=== PATIENT | male | born 1940 | race Caucasian/White ===

== ENCOUNTER → 2017-07-15 11:45 | Outpatient (CLI) | payer MEDICARE, SELFPAY ==
[2017-07-15 12:53] LABS: Hemoglobin A1c 5.8 % (4.2-6.3)
[2017-07-15 13:08] LABS: Cholesterol 203 mg/dL (200); High Density Lipoprotein 43 mg/dL; Triglycerides 134 mg/dL; Very Low Density Lipoprotein 27 mg/dL (5-40)
== END ==
PROVIDERS: Family Provider Family Medicine; PCP Family Medicine; Visit Provider Family Medicine
DX: E11.9 Type 2 diabetes mellitus without complications (principal)
CPT/HCPCS: 36415; 80061; 83036

== ENCOUNTER 2018-02-10 16:14 | Emergency (ER) | payer MEDICARE, SELFPAY ==
[2018-02-10 16:16] VITALS: BP 172/89; PULSE 97; RESP 16; TEMP 37.1; O2SAT 97; BMI 24.3
--- NOTE | 2018-02-10 16:29 | CT_ITS ---
STUDY: CT FACIAL BONES WITHOUT CONTRAST REASON FOR EXAM: Male, 77 years old. Facial pain. Injury. RADIATION DOSAGE (If Supplied By Facility): CTDIvol = ( 29.38 ) mGy, DLP = ( 613.57 ) mGycm TECHNIQUE: The patient was scanned in a multi detector CT scanner. Sagittal and coronal images were reconstructed. Individualized dose optimization techniques were used for this CT. COMPARISON: None. FINDINGS: Normal soft tissue structures. Nearly complete opacification of the left maxillary sinus is seen including mucosal thickening and air-fluid level. Findings are consistent with findings are consistent with Normal orbital rojas and orbital contents. Normal nasal bones and anterior nasal spine. Normal facial bones. There is no demonstrated fracture. CT/Sinus/Facial Bone IMPRESSION: No facial fractures. 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 Electronically Signed: Ant Mcbride MD at 18:17 EST , Service support ,
--- NOTE | 2018-02-10 16:29 | CT_ITS ---
STUDY: CT BRAIN WITHOUT CONTRAST REASON FOR EXAM: Male, 77 years old. Trauma. RADIATION DOSAGE (If Supplied By Facility): CTDIvol = ( 44.99 ) mGy, DLP = ( 798.92 ) mGycm TECHNIQUE: Transaxial CT imaging of the brain was performed without administration of intravenous contrast material. Individualized dose optimization techniques were used for this CT. COMPARISON: 03/22/2014. FINDINGS: There is no definite acute abnormality. There is diffuse moderate symmetric atrophy. There is atrophy of the posterior fossa structures. 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 There is no definite acute infarct. There is no bleed. There is no gross mass, mass effect, or midline shift. There is no acute abnormality of the skull. No fractures. Grossly normal orbits. Grossly normal sinuses. CT/Brain/Head without Contrast IMPRESSION: Chronic age related changes and atrophy. No acute abnormality. Electronically Signed: Ant Mcbride MD at 17:57 EST , Service support ,
--- NOTE | 2018-02-10 16:30 | ED.VISSUMM ---
- ER Visit Summary Date of Service: 02/10/18 Chief Complaint: Fall History of Present Illness: The patient is a 77 M presenting after a fall. Patient states he tripped and fell on [place]. He hit his face on the ground. He has a laceration under his nose. Last tetanus is unknown. He denies loss of consciousness. Denies other injuries. He is not on anticoagulants. Physical Examination: Vitals are stable. Patient is afebrile. Alert no acute distress. HEENT exam 2 cm laceration under nose, 2, 1 cm lacerations inner upper lip. Midface is stable. Teeth are stable. Neck is nontender Lungs are clear and equal bilaterally. Heart is regular rate and rhythm. Abdomen is soft nontender nondistended. Extremities are unremarkable. Skin is warm and dry. No focal neurologic deficit. Remainder of exam is unremarkable. Emergency Department Course and Treatment: Patient was given tetanus IM. Wound was irrigated. Anesthetized with lidocaine. 3, 5-0 simple sutures were placed under the nose. 4, 5-0 Vicryl sutures were placed inner upper lip. Patient tolerated this well. CT head shows no acute process. CT facial bones shows no fracture. Patient is advised wound care instructions. Advised to follow-up with his primary care physician. Advised return to ED for worsening complaints. Disposition: Discharge home Impression: Facial laceration, mechanical fall, laceration repair This note was generated with [employer] dictation software. It may contain incorrect words, spelling, and punctuation that were not noted in review of the chart prior to signing ED Disposition - Plan for ED Patient: Chief Complaint: Laceration Referrals: Usman Smalls DO [Primary Care Provider] -
[2018-02-10] MEDS: Diphth,Pertuss(Acell),Tet Vac 0.5 ML Vial IM (16:48)
--- NOTE | 2018-02-10 16:52 | ED.RN ---
PT REFUSED CT SCAN, DR. GOLDSTEIN INFORMED OF SAME.
--- NOTE | 2018-02-10 17:11 | ED.RN ---
DR. GOLDSTEIN DISCUSSED CT SCAN WITH PT AND PT NOW AGREEABLE TO HAVE CT SCAN.
[2018-02-10 17:12] VITALS: BP 187/89; PULSE 71; RESP 16; O2SAT 95
--- NOTE | 2018-02-10 18:25 | ED.DEP ---
ED Disposition - Plan for ED Patient: Chief Complaint: Laceration Instructions: ED Laceration Mouth, ED Laceration Facial Sutr Tape Referrals: Usman Smalls DO [Primary Care Provider] -
== END 2018-02-10 18:38 | disposition home or self-care (01) ==
LOC: ED 16:46
PROVIDERS: Emergency Provider Emergency Medicine; Family Provider Family Medicine; PCP Family Medicine
DX: S01.81XA Laceration without foreign body of other part of head, initial encounter (principal); W01.0XXA Fall on same level from slipping, tripping and stumbling without subsequent striking against object, initial encounter; E11.9 Type 2 diabetes mellitus without complications; I10 Essential (primary) hypertension; E78.00 Pure hypercholesterolemia, unspecified
CPT/HCPCS: 12011; 70450; 70486; 90471; 90715; 99285

== ENCOUNTER → 2018-02-17 09:05 | Outpatient (CLI) | payer MEDICARE, SELFPAY ==
[2018-02-17 09:05] VITALS: BMI 25.2
[2018-02-17 10:31] LABS: Absolute Lymphocyte Count 1.58 X10^3/ul (0.83-4.51); Absolute Neutrophil Count 3.6 X10^3/uL (2.0-7.7); Basophil# 0.04 X10^3/uL; Basophil% 0.6 % (0-1); Eosinophil# 0.36 X10^3/uL; Eosinophils% 5.5 % (0-5); Hematocrit 44.8 % (40-54); Hemoglobin 14.6 g/dl (13.0-16.5); Lymphocyte # 1.58 X10^3/ul (4.0); Lymphocyte % 24.3 % (19-41); Mean Corp Hgb Conc 32.6 g/gl (32-36); Mean Corpuscular Volume 101.1 fL (80-94); Mean Platelet Vol. 10.4 fl (6.2-12.0); Monocyte% 13.8 % (0-10); Neutrophil # 3.61 X10^3/uL (2.7-7.7); Neutrophil % 55.6 % (47-70); Platelet Count 223 K/mm3 (150-450); RBC Distribution Width CV 12.3 % (11.6-14.6); RBC Distribution Width SD 45.3 fl (35.1-43.9); Red Blood Count 4.43 M/mm3 (4.6-6.2); White Blood Count 6.5 K/mm3 (4.4-11.0)
[2018-02-17 10:42] LABS: POSITIVE COUNT NO; POSITIVE DIFFERENTIAL NO; POSITIVE MORPHOLOGY NO
[2018-02-17 11:03] LABS: ALB/GLOB Ratio 0.8 RATIO (0.9-2.4); AST(SGOT) 29 U/L (15-37); Alanine Aminotransfer ALT/SGPT 33 U/L (16-61); Albumin, Serum 3.5 g/dL (3.2-5.0); Alkaline Phosphatase 78 U/L (45-117); Anion Gap 5 (5-15); BUN 23 mg/dL (7-18); BUN/Creat Ratio 15.2 RATIO (10-20); Calcium,Total 8.4 mg/dL (8.5-10.1); Chloride 108 mmol/L (98-107); Cholesterol 170 mg/dL (200); Creatinine, Serum 1.51 mg/dL (0.70-1.30); EST Glomerular Filtration Rate 48 mL/min (>60); Est Glom Filt Rate - Afr Amer 58 mL/min (>60); Globulin 4.5 g/dL (2.2-4.2); Glucose 99 mg/dL (74-106); High Density Lipoprotein 36 mg/dL; Potassium 4.6 mmol/L (3.5-5.1); Sodium Level 143 mmol/L (136-145); Triglycerides 128 mg/dL; Very Low Density Lipoprotein 26 mg/dL (5-40)
--- OUTSIDE RECORDS SUMMARY | 2018-04-14 14:56 | XMS RPT_ITS ---
:1940 Author Organization [facility] Care Team Providers Name Role Phone Usman Smalls Attending Unavailable Sammy, Sherley Referring Unavailable Sammy, Sherley Primary Care Unavailable Stu Smallslas Attending Unavailable Brown, Usman Referring Unavailable Brown, Usman Primary Care Unavailable Brown, Usman Primary Care Unavailable Shira Ruiz Attending Unavailable Magan Awan STITCH CLEANER-C Attending Unavailable Brown, Usman Referring Unavailable Brown, Usman Attending Unavailable Brown, Usman Referring Unavailable Brown, Usman Primary Care Unavailable PROBLEMS PROBLEMS DATE TYPE CONDITION / CODE ATTENDING STATUS SOURCE 02/16/2018 Unknown I10 - Essential Magan Awan Active Elena (primary) [employer]-C Community hypertension / Hospital I10(ICD-10) Repository 02/16/2018 Unknown E78.5 - Magan Awan Active Elena Hyperlipidemia, STITCH CLE[employer]ER-C Community unspecified / Hospital E78.5(ICD-10) Repository 07/15/2017 Unknown E11.9 - Type 2 Usman Smalls Active Elena diabetes mellitus Community without Hospital complications / Repository E11.9(ICD-10) PROCEDURES PROCEDURES No Procedure Records FoundRESULTS RESULTS INTERNAL MEDICINE Observed: 02/18/2018 Status: F Source: [place] OFFICE VISIT 8:56 AM [facility] [address] [place] [address] [place] [address] OFFICE VISIT Date of Service: 02/16/18 MR#: [id number] Acct: [id number] Name: APOLINAR SPAULDING Rep #: [id number] : 1940 Provider: Magan Awan NP Age/Sex: 77/M Location: [facility] Status: Signed Intake Vital Signs02/16/18 Blood Pressure 186/94 H H 02/16/18 Temperature 99.3 F 02/16/18 Height 5 ft 11 in Intake Visit Reasons: SUTURE REMOVAL Chief Complaint: suture removal Is patient in pain?: No Allergies carbenicillin indanyl sodium [From Geocillin] Adverse Reaction (Verified 02/16/18 08:29) Other Medications Aspirin 325 mg PO DAILY@0800 03/23/14 [History Confirmed 02/16/18] losartan 50 mg tablet 50 mg PO DAILY #30 tab 02/16/18 [Rx Confirmed 02/16/18] metoprolol tartrate 100 mg tablet 100 mg PO BID 02/16/18 [History Confirmed 02/16/18] Nurse's Note: Pt presents today for suture removal. Pt c/o dizziness. PFSH Medical History Diabetes (Chronic) Arthritis (Chronic) High cholesterol (Chronic) High blood pressure (Chronic) Cataract (Chronic) Cataract (Resolved) Surgical History History of cataract surgery (Chronic) History of carotid artery dissection (Acute) History of hernia repair (Acute) Family History Father Hypertension Arthritis Social History Smoking Status: Never smoker how long ago did patient quit smokin years ago alcohol intake: never substance use type: does not use what type of physical activity do you participate in: walking frequency: daily HPI HPI Chief Complaint: suture removal Details: APOLINAR SPAULDING is a 77 M who presents to the office today for hospital follow-up for recent fall with facial laceration. The patient has a past medical history as listed above. Patient was seen at [facility] ER on February 10 for sutures to a facial laceration that occurred due to a fall. A CT of the head was done and was negative. The patient states he thinks he fell because he was dizzy, he is unsure if it was his BP that made him dizzy. Last fall occurred over 3 years ago that was due to dizziness patient was found to have some carotid blockage that he received an left carotid endarterectomy. The patient continues to complain of intermittent dizziness but no falls since the ER visit. Denies any bleeding, purulent drainage or signs of infection regarding the facial laceration repair under his left nostril. He denies any other aggravating or alleviating factors. The patient otherwise denies any fever, chills, nausea, vomiting, shortness of breath, chest pain or pressure, palpitations, orthopnea, lower extremity edema, syncope or presyncopal episodes. ROS Const Constitutional: No anorexia, body ache, chills, fever(s), decreased energy, malaise, night sweats, weight change, sleep problems, other, snoring, weakness, frequent falls, headache(s), abnormal sleep pattern, change in appetite, excessive sweating or fatigue Eyes Eyes: No blurry vision, change in vision, double vision, discharge, dry eyes, bulging eyes, floaters, eye pain, light sensitivity, spots in vision, tunnel vision, other or visual disturbances ENT ENT: No ear pain, ear discharge, ear pressure, hearing loss, tinnitus, dizziness/vertigo, balance problems, nosebleed/epistaxis, nasal congestion, nasal obstruction, nose pain, sinus pressure, sinus pain, nasal discharge, post nasal drip, facial pain, dental pain, dry mouth, bad breath, hoarseness, mouth lesions, mouth pain, sore throat, difficulty swallowing, neck pain, abnormal hearing, headache(s), other, lip swelling, throat swelling or tongue swelling Resp Respiratory: No cough, change in phlegm color, chest congestion, excessive phlegm production, hemoptysis, pain on inspiration, shortness of breath, pain with cough, snoring, stridor, other or wheezing Cardio Cardiology: No chest pain at rest, chest pain with exertion, leg pain with exertion, shortness of breath, dyspnea on exertion, generalized swelling, irregular heart rhythm, lightheadedness, orthopnea, radiating jaw, neck or arm pain, fast heart rate, slow heart rate, palpitations, other or excessive sweating Gastro GI: No abdominal pain, belching, bloating, change in bowel habits, change in stool character, coffee ground emesis, constipation, cramping, diarrhea, heartburn, difficulty swallowing, feeling full early, excessive flatus, incontinent of stools, Vomiting blood/hematemesis, blood in stool, loose stools, Black,tarry stools, nausea/dyspepsia, pain with swallowing, vomiting or other Genitourinary Male: No difficulty urinating, burning urination, painful urination, urinary incontinence, urinary frequency, urinary urgency, urinary hesitancy, urinary retention, blood in urine, Frequent nighttime urination/ nocturia, post void dribbling, suprapubic fullness, side pain, sexual problems, genital lesions, genital itching, erectile dysfunction, penile discharge, difficulty with ejaculations, blood in semen, scrotal swelling, testicle lump, testicle pain or other Musc Musculoskeletal: No joint pain, back pain, deformity, joint swelling, limited range of motion, loss of height, muscle cramps, muscle weakness, decreased muscle mass, body aches, neck pain, radiating pain into limb, stiffness, other, abnormal walking, numbness or tingling Skin Skin: No acne, hair loss, change in hair, nail changes, boil, change in skin color, dry skin, redness, excessive hair growth, yellowing of the skin, lesions, rash, skin pain, skin ulcer, sores, skin swelling, wounds, other or itching Breast Breast: No change in breast shape, breast lump, breast pain, breast skin changes, breast swelling, nipple discharge or other Neuro Neurology: No abnormal walking, abnormal hearing, abnormal movements, abnormal speech, unsteady gait/balance, weakness, frequent falls, headache(s), lack of coordination, loss of vision, numbness, tingling, visual disturbances, restless legs, fainting, tremor(s), other, behavioral changes, confusion or memory loss Psych Psychiatric: No abnormal sleep pattern, No lack of enjoyment, No anxiety, No behavioral changes, No change in appetite, No confusion, No depression, No difficulty concentrating, No hopelessness, No irritability, No memory loss, No mood swings, No panic attacks, No paranoia, No Thoughts of harming yourself/Others, No hallucinations, No other Endo Endocrine: No change in body appearance, cold intolerance, excessive sweating, fatigue, flushing, heat intolerance, increased thirst/drinking, increased hunger, increased urination or other Aller/Imm Allergy/Immunologic: No food intolerance, itchy eyes, lip swelling, seasonal allergy symptoms, throat swelling, tongue swelling, hives, wheezing or other Pablo/Lymp Hematologic/Lymphatic: No easy bleeding, easy bruising, enlarged lymph nodes or other Exam Const General: cooperative, comfortable, no acute distress Nutritional Appearance: average body habitus, well nourished Orientation: alert, oriented x3 Limitations: mental status not altered HENMT Head: normal to inspection Ears: hearing grossly normal bilaterally, unable to visualize TM (cerumen impaction) bilaterally Mouth: oral mucosae normal Throat: posterior oropharynx normal Eyes General: appearance normal, both eyes and all related structures Visual Schuler: normal visual schuler by confrontation Pupils: PERRL Neck Neck: normal visual inspection Resp Effort AND Inspection: normal respiratory effort, able to speak in complete sentences, normal respiratory pattern, symmetric chest movement, no audible wheezes, no cough Auscultation: Bilateral: Clear to Auscultation Cardio Palpation: normal PMI Rate: regular rate Heart Sounds: S1 normal, S2 normal, normal S1 and S2, no click, no gallops, no murmurs, no rubs Musc Musculoskeletal: No muscle weakness Skin General: no rashes or lesions noted, elasticity normal, turgor normal Lesions: no lesions Rashes: no rashes Trauma: laceration Other: Left nasal region above the left lip 3 sutures were removed, patient tolerated the procedure well. Site is well approximated without any signs of infection. Dissolvable sutures were visible in left internal upper lip without any signs of infection. Neuro General: alert, awake, oriented x3, CN's II-XI intact bilaterally Speech: speech normal Gait: normal gait Motor: muscle tone normal throughout Extrem General: normal to inspection, normal gait, no edema, no pedal edema Psych Appearance: grossly normal Mental Status: mental status grossly normal Affect: normal affect Attitude: cooperative Thought Process: normal Office Procedures Cerumen Removal BMS Cerumen Removal Procedure Procedure performed by: Verónica Alcantara Method of removal: cerumen loop/spoon From which ear canal was the cerumen removed: bilateral Amount of Cerumen: moderate Patient tolerated procedure: well Complications: other Additional Details: unable to remove all cerumen, tms unable to be visualized, discussed use of debrox Assessment AND Plan 1. HTN (hypertension) I10 Plan Blood pressure elevated at ER visit and today in office. Will start patient on losartan, check BMP blood work in 2 weeks. Patient encouraged to continue to monitor blood pressure at home. Patient educated on medication side effects and signs and symptoms that would warrant emergency medical care. Orders Orders: 2. Bilateral impacted cerumen H61.23 Plan Unsuccessful attempt to irrigate in office. Patient encouraged to lemon picker Debrox [id number]. Will attempt to irrigate again in future. Orders Orders: 3. Dizziness R42 Plan Patient complains of intermittent dizziness. Possible cause cerumen impaction or hypertension. Attempted cerumen removal, patient to treat with [id number] Debrox. Patient started on losartan for hypertension. If continual dizziness consider checking carotids. Patient educated on signs and symptoms that would warrant emergency medical care. 4. Facial laceration S01.81XA Plan 3 sutures removed from above patient's upper lip. Patient encouraged to use bacitracin for 1 week and to also avoid shaving for this amount of time. Patient educated on signs and symptoms of infection and to call office if present. Does still have dissolveable sutures in place to inner lip. Plan Detail Other Orders Orders: Other Medications New: Follow Up 4 Weeks Coding Level of Care Code Off vis,est,level 3 Diagnoses HTN (hypertension) I10 Bilateral impacted cerumen H61.23 Dizziness R42 Facial laceration S01.81XA 02/18/18 0856 <Electronically signed by Magan MEZA> Date Magan MEZA Cosigner Signature: Date (if applicable) CC: NAHOMI W/DIFF, AUTOMATED Collected: 02/17/2018 Status: F Source: [place] 9:08 AM [facility] [place] REPOSITORY TYPE CODE TESTS RESULT OUT OF RANGE REFERENCE UNITS LAB L100.1000 4.4-11.0 K/mm3 Normal WBC 6.5 LAB L100.1200 4.6-6.2 M/mm3 Low RBC 4.43 LAB L100.1300 13.0-16.5 g/dl Normal HGB 14.6 LAB L100.1400 40-54 % Normal HCT 44.8 LAB L100.1500 80-94 fL High MCV 101.1 LAB L100.1600 27.0-32.0 pg High MCH 33.0 LAB L100.1700 32-36 g/gl Normal MCHC 32.6 LAB L100.1810 11.6-14.6 % Normal RDW CV 12.3 LAB L100.1820 35.1-43.9 fl High RDW SD 45.3 LAB L100.1900 150-450 K/mm3 Normal PLT 223 LAB L100.2000 6.2-12.0 fl Normal MPV 10.4 LAB L100.2100 47-70 % Normal NEUT% 55.6 LAB L100.2200 19-41 % Normal LY% 24.3 LAB L100.2300 0-10 % High MONO% 13.8 LAB L100.2400 0-5 % High EO% 5.5 LAB L100.2500 0-1 % Normal BASO% 0.6 LAB L100.2550 0.0-0.9 % Normal IM GRAN % 0.200 Result Comment: IG% - Immature Granulocytes (promyelocytes, myelocytes and metamyelocytes) > 1% indicates that a LEFT SHIFT is Present. LAB L100.2620 2.0-7.7 X10 3/uL Normal Absolute Neut 3.6 LAB L100.2720 0.83-4.51 X10 3/ul Normal Absolute Lymph 1.58 Performed By: #### L100.0100 #### [facility] [address] [place], [address] COMPREHENSIVE METABOLIC Collected: 02/17/2018 Status: F Source: [facility] 9:08 AM [facility] REPOSITORY TYPE CODE TESTS RESULT OUT OF RANGE REFERENCE UNITS LAB L501.0100 74-106 mg/dL Normal GLU 99 Result Comment: Please note revised GLUCOSE reference range effective 2017. LAB L501.1000 7-18 mg/dL High BUN 23 LAB L501.1100 0.70-1.30 mg/dL High CREAT,SERUM 1.51 Result Comment: The validity of the calculated GFR AND GFRAA in patients over 70 years has not been determined. Clinical correlation is essential. LAB L501.1110 >60 mL/min Low EST GFR 48 Result Comment: Non- GFR Calc LAB L501.1115 >60 mL/min Low EST GFR - AA 58 Result Comment: GFR Calc LAB L501.1300 10-20 RATIO Normal BUN/CRE 15.2 LAB L501.1500 6.4-8.2 g/dL T Normal PROT 8.0 LAB L501.1800 3.2-5.0 g/dL Normal ALB 3.5 LAB L501.1950 2.2-4.2 g/dL High GLOB 4.5 LAB L501.2000 0.9-2.4 RATIO Low A/G 0.8 LAB L501.2200 8.5-10.1 mg/dL Low CA 8.4 LAB L501.4100 15-37 U/L Normal AST 29 LAB L501.4305 45-117 U/L Normal ALK P 78 LAB L501.4405 16-61 U/L Normal ALT 33 LAB L501.4600 0.20-1.00 mg/dL T Normal BILI 0.80 LAB L501.5300 136-145 mmol/L NA Normal 143 LAB L501.5600 3.5-5.1 mmol/L K Normal 4.6 LAB L501.5900 98-107 mmol/L High CL 108 LAB L501.6100 21.0-32.0 mmol/L Normal CO2 30.0 LAB L501.6200 5-15 Normal GAP 5 Performed By: #### L500.4050, L500.4100 #### [facility] [address] [place], [address] LIPID PROFILE Collected: 02/17/2018 Status: F Source: [place] 9:08 AM [facility] REPOSITORY TYPE CODE TESTS RESULT OUT OF RANGE REFERENCE UNITS LAB L501.4900 200 mg/dL Normal CHOL 170 Result Comment: <200 mg/dL Desirable 200-240 mg/dL Borderline >240 mg/dL High Risk LAB L501.5000 mg/dL Normal TRIG 128 Result Comment: The drugs N-Acetylcysteine and Metamizole may falsely depress this assay. Serum Triglycerides Reference Interval Normal <150 mg/dL Borderline high 150 - 199 mg/dL High 200 - 499 mg/dL Very High > or = 500 mg/dL LAB L501.6400 mg/dL Low HDL 36 Result Comment: The drugs N-Acetylcysteine and Metamizole may falsely depress this assay. Reference Range HDL <40 mg/dL Low HDL Cholesterol HDL >or= 60 mg/dL High HDL Cholesterol LAB L501.6500 0-130 mg/dL Normal LDL 108 LAB L501.6600 5-40 mg/dL Normal VLDL 26 Performed By: #### L500.4050, L500.4100 #### [facility] [address] [facility] [place], [address] EMERGENCY DEPARTMENT Observed: 02/10/2018 Status: F Source: [place] SUMMARY 6:25 PM [facility] [place] REPOSITORY [facility] Medical Records Department [address] [facility] [place] [place] [address] Emergency Department Summary 02/10/18 1630 MR#: [id number] Acct: [id number] Name: APOLINAR SPAULDING Rep #: [id number] : 1940 77 From: Shira Ruiz MD PCP: Usman Smalls DO Status: REG ER - ER Visit Summary Date of Service: 02/10/18 Chief Complaint: Fall History of Present Illness: The patient is a 77 M presenting after a fall. Patient states he tripped and fell on [place]. He hit his face on the ground. He has a laceration under his nose. Last tetanus is unknown. He denies loss of consciousness. Denies other injuries. He is not on anticoagulants. Physical Examination: Vitals are stable. Patient is afebrile. Alert no acute distress. HEENT exam 2 cm laceration under nose, 2, 1 cm lacerations inner upper lip. Midface is stable. Teeth are stable. Neck is nontender Lungs are clear and equal bilaterally. Heart is regular rate and rhythm. Abdomen is soft nontender nondistended. Extremities are unremarkable. Skin is warm and dry. No focal neurologic deficit. Remainder of exam is unremarkable. Emergency Department Course and Treatment: Patient was given tetanus IM. Wound was irrigated. Anesthetized with lidocaine. 3, 5-0 simple sutures were placed under the nose. 4, 5-0 Vicryl sutures were placed inner upper lip. Patient tolerated this well. CT head shows no acute process. CT facial bones shows no fracture. Patient is advised wound care instructions. Advised to follow-up with his primary care physician. Advised return to ED for worsening complaints. Disposition: Discharge home Impression: Facial laceration, mechanical fall, laceration repair This note was generated with [employer] dictation software. It may contain incorrect words, spelling, and punctuation that were not noted in review of the chart prior to signing ED Disposition - Plan for ED Patient: Chief Complaint: Laceration Referrals: Usman Smalls, [Primary Care Provider] - What to do if you have Problems For any increased pain, shortness of breath, bleeding, nausea or vomiting, chest pain, or any unexpected problems, contact your Primary Care Provider. Call [facility] ([phone]) or report to the closest Emergency Room. Call 911 if necessary. 02/10/181824 <Electronically signed by Shira Ruiz MD> Date Shira Ruiz MD Cosigner Signature (If Indicated): Date CC: Usman Smalls DO DISCHARGE INSTRUCTION Observed: 02/10/2018 Status: F Source: [place] 6:[address] [facility] Medical Records Department [address] [place] [address] Discharge Instruction 02/10/181824 MR#: [id number] Acct: [id number] Name: APOLINAR SPAULDING Rep #: [id number] : 1940 77 From: Shira Ruiz MD PCP: Usman Smalls DO Status: REG ER ED Disposition - Plan for ED Patient: Chief Complaint: Laceration Instructions: ED Laceration Mouth, ED Laceration Facial Sutr Tape Referrals: Usman Smalls DO [Primary Care Provider] - What to do if you have Problems For any increased pain, shortness of breath, bleeding, nausea or vomiting, chest pain, or any unexpected problems, contact your Primary Care Provider. Call [facility] ([phone]) or report to the closest Emergency Room. Call 911 if necessary. 02/10/18 9377 <Electronically signed by Shira Ruiz MD> Date Shira Ruiz MD Cosigner Signature (If Indicated): Date CC: Usman Smalls DO BRAIN/HEAD WITHOUT Observed: 02/10/2018 Status: F Source: [place] CONTRAST 4:30 PM [facility] REPOSITORY [facility] Imaging Services [address] [place], [place] [address] [address] Brain/Head without Contrast MR#: [id number] Acct: [id number] Name: APOLINAR SPAULDING Rep #: [id number] : 1940 M 77 From: Ant Mcbride MD PCP: Usman Smalls DO Status: REG ER Study: Brain/Head without Contrast Date of Exam: 02/10/18 Exam# [id number] Ordering Dr: Shira Ruiz MD STUDY: CT BRAIN WITHOUT CONTRAST REASON FOR EXAM: Male, 77 years old. Trauma. RADIATION DOSAGE (If Supplied By Facility): CTDIvol = ( 44.99 ) mGy, DLP = ( 798.92 ) mGycm TECHNIQUE: Transaxial CT imaging of the brain was performed without administration of intravenous contrast material. Individualized dose optimization techniques were used for this CT. COMPARISON: 03/22/2014. FINDINGS: There is no definite acute abnormality. There is diffuse moderate symmetric atrophy. There is atrophy of the posterior fossa structures. 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 There is no definite acute infarct. There is no bleed. There is no gross mass, mass effect, or midline shift. There is no acute abnormality of the skull. No fractures. Grossly normal orbits. Grossly normal sinuses. CT/Brain/Head without Contrast IMPRESSION: Chronic age related changes and atrophy. No acute abnormality. Electronically Signed: Ant Mcbride MD at 17:57 EST , Service support , CC: Shira Ruiz MD; Usman Smalls DO Service Crew Supervisor: Signed SINUS/FACIAL BONE Observed: 02/10/2018 Status: F Source: [place] 4:30 PM [facility] REPOSITORY [facility] Imaging Services [address] [place] [address] Sinus/Facial Bone MR#: [id number] Acct: [id number] Name: APOLINAR SPAULDING Rep #: [id number] : 1940 77 From: Ant Mcbride MD PCP: Usman Smalls DO Status: REG ER Study: Sinus/Facial Bone Date of Exam: 02/10/18 Exam# [id number] Ordering Dr: Shira Ruiz MD STUDY: CT FACIAL BONES WITHOUT CONTRAST REASON FOR EXAM: Male, 77 years old. Facial pain. Injury. RADIATION DOSAGE (If Supplied By Facility): CTDIvol = ( 29.38 ) mGy, DLP = ( 613.57 ) mGycm TECHNIQUE: The patient was scanned in a multi detector CT scanner. Sagittal and coronal images were reconstructed. Individualized dose optimization techniques were used for this CT. COMPARISON: None. FINDINGS: Normal soft tissue structures. Nearly complete opacification of the left maxillary sinus is seen including mucosal thickening and air-fluid level. Findings are consistent with findings are consistent with Normal orbital rojas and orbital contents. Normal nasal bones and anterior nasal spine. Normal facial bones. There is no demonstrated fracture. CT/Sinus/Facial Bone IMPRESSION: No facial fractures. 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 Electronically Signed: Ant Mcbride MD at 18:17 EST , Service support , CC: Shira Ruiz MD; Usman Smalls DO Service Crew Supervisor: Signed PROGRESS Observed: 09/28/2017 Status: COMPLETED Source: [place] 1:15 PM [facility] REPOSITORY HNO ID: [id number] Author: Sara De Oliveira Service: (none) Author Type: Property Adjuster Type: Progress Notes Filed: 09/28/2017 1:17 PM Note Text: Patient hasn't seen for 3 years, will remove him as PCP. This was discuss at the teamlet meeting. Sara De Oliveira MA CNPTOUTREACH Observed: 09/28/2017 Status: COMPLETED Source: [place] 12:00 AM [facility] REPOSITORY Patient Outreach (FAMPWS) APOLINAR SPAULDING ([id number]) 1940 M Date Time Provider Department 09/28/17 SARA DE OLIVEIRA MA During your visit today, we recorded the following information about you: Sara De Oliveira MA 09/28/2017 1:17 PM Signed Patient hasn't seen for 3 years, will remove him as PCP. This was discuss at the teamlet meeting. Sara De Oliveira MA Allergies As of Date: 09/28/2017 Noted Allergy Reaction GEOCILLIN (CARBENICILLIN INDANYL *04/03/2014 16 - Unknown Date Reviewed: 08/15/2014 Reviewed by: Bony Guerra - Fully Assessed Reason for Visit: PHMA/Care Gap Outreach [[id number]] Prescriptions as of 09/28/2017 Sig: LANCETS 28 GAUGE Test blood sugar(s) one time * BLOOD SUGAR DIAGNOSTIC STRIPS Test blood sugar(s) one time * PIOGLITAZONE 30 MG TABLET Take 1 tablet by mouth once d* HYDROCHLOROTHIAZIDE 25 MG TAB* Take 1 tablet by mouth once d* ATORVASTATIN 40 MG TABLET Take 1 tablet by mouth once d* SODIUM CHLORIDE 0.9 % INTRAVE* 1000 ml 0.9%NS bolus METOPROLOL TARTRATE 50 MG TAB* twice daily. ASPIRIN 325 MG TABLET Take 325 mg by mouth as neede* Problem List As Of Date 09/28/2017 Noted Resolved History of stroke [Z86.73] INVALID FOR* Priority: A Weakness [R53.1] INVALID FOR* Occlusion and stenosis of carotid artery withou*INVALID FOR* Priority: A More... HTN (hypertension) [I10] INVALID FOR* Priority: A Hyperlipidemia [E78.5] INVALID FOR* Priority: A Elevated LFTs [R94.5] INVALID FOR* Elevated serum protein level [R77.9] INVALID FOR* Abnormal serum protein electrophoresis [R77.8] INVALID FOR* CKD (chronic kidney disease) stage 3, GFR 30-59*INVALID FOR* Priority: A More... Type 2 diabetes mellitus without complication (*INVALID FOR* Priority: A Encounter Status:Closed by SARA DE OLIVEIRA on 09/28/17 [facility] Observed: 08/11/2017 Status: COMPLETED Source: [place] 12:00 AM [facility] REPOSITORY Letter Text Department of Family Medicine [address] [place], [place] [address] 08/11/2017 Apolinar Spaulding CCF# [id number] Dear Mr. Spaulding: Thank you for choosing [facility] for your care. We are trying to improve Care for people who have hypertension or who are at risk of hypertension. According To the [facility] records it looks as if you will need an appointment. Please use My Chart to request an appointment or call [phone]. If you are receiving care outside of [facility] please call us and let us know so we Can update our records. Sincerely, [facility] INTERNAL MEDICINE Observed: 07/15/2017 Status: F Source: [place] OFFICE VISIT 12:31 PM [facility] REPOSITORY [facility] [place] [address] [place] [address] OFFICE VISIT Date of Service: 07/15/17 MR#: [id number] Acct: [id number] Name: APOLINAR SPAULDING Rep #: [id number] : 1940 Provider: Usman Smalls DO Age/Sex: 77/M Location: [facility] Status: Signed Intake Vital Signs07/15/17 Height 5 ft 10 in 07/15/17 Weight: 177 lb 07/15/17 Body Mass Index (BMI) 25.4 07/15/17 Blood Pressure 213/98 07/15/17 Blood Pressure Location Rt brachial Intake Visit Reasons: AMD/DIABETIC CHECK Chief Complaint: Diabetic check Allergies carbenicillin indanyl sodium [From Geocillin] Adverse Reaction (Verified 07/15/17 10:59) Other Medications Aspirin 325 mg PO DAILY@0800 03/23/14 [History Confirmed 07/15/17] PFSH Medical History Diabetes (Chronic) Arthritis (Chronic) High cholesterol (Chronic) High blood pressure (Chronic) Cataract (Chronic) Cataract (Resolved) Surgical History History of cataract surgery (Chronic) History of carotid artery dissection (Acute) History of hernia repair (Acute) Family History Father Hypertension Arthritis Social History Smoking Status: Former smoker how long ago did patient quit smokin years ago alcohol intake: never substance use type: does not use what type of physical activity do you participate in: walking frequency: daily HPI HPI Chief Complaint: Diabetic check Details: APOLINAR SPAULDING, is a 77 M who presents to the office today for evaluation of his diabetes ROS Const Constitutional: No chills, fatigue, fever(s), frequent falls, malaise, weakness, sleep problems or change in appetite Eyes Eyes: No blurry vision, change in vision, double vision, discharge or visual disturbances ENT ENT: No abnormal hearing, ear pain, ear pressure, tinnitus or dizziness/vertigo Resp Respiratory: No cough, shortness of breath or wheezing Cardio Cardiology: No chest pain at rest, chest pain with exertion, shortness of breath, dyspnea on exertion, generalized swelling, irregular heart rhythm, lightheadedness, orthopnea, fast heart rate or palpitations Gastro GI: No abdominal pain, change in bowel habits, constipation, diarrhea, nausea/dyspepsia or vomiting Genitourinary Male: No difficulty urinating, burning urination, painful urination, urinary incontinence, urinary frequency, urinary urgency, urinary hesitancy, urinary retention, blood in urine, Frequent nighttime urination/ nocturia, sexual problems, testicle lump or testicle pain Musc Musculoskeletal: No joint pain, back pain, joint swelling, limited range of motion, muscle weakness, numbness or tingling Skin Skin: No change in skin color, itching, rash or wounds Breast Breast: No breast lump or breast pain Neuro Neurology: No frequent falls, weakness, abnormal hearing, numbness, tingling, unsteady gait/balance, dizziness, loss of vision, memory loss or visual disturbances Psych Psychiatric: No memory loss, No anxiety, No change in appetite, No depression, No Thoughts of harming yourself/Others Endo Endocrine: No fatigue, heat intolerance, increased thirst/drinking, increased hunger or increased urination Aller/Imm Allergy/Immunologic: No wheezing, itchy eyes or seasonal allergy symptoms Pablo/Lymp Hematologic/Lymphatic: No easy bleeding, easy bruising or enlarged lymph nodes Exam Const General: cooperative Nutritional Appearance: average body habitus Orientation: oriented x3 Neck Neck: no lymphadenopathy Neck mass: No Resp Effort AND Inspection: normal respiratory effort Auscultation: Bilateral: Clear to Auscultation Cardio Rate: regular rate Rhythm: regular rhythm GI Inspection: normal to inspection Musc Musculoskeletal: No muscle weakness Neuro General: oriented x3 Extrem General: no pedal edema Assessment AND Plan Problems 1. Hypertension I10 2. High cholesterol E78.00 3. Diabetes E11.9 Orders Orders: Plan Detail Additional Comments This patient was seen in follow-up for his diabetes. After reviewing his history I very much doubt that he has diabetes he said he was diabetic he lost 50 pounds and since that time on no medication his hemoglobin A1c's have been 5.5 on the average and when I looked at his meter the average fasting sugar was 103 make me highly doubt that the initial diagnosis was correct. My biggest concern was his blood pressure which she assures me is normal and he takes it at home. I will get a repeat A1c to make sure that the diagnosis of diabetes could be ruled out and also to recheck his cholesterol because he has history of hyperlipidemia if his blood pressure would continue to be elevated on his home readings he is to be in touch with me so we can initiate therapy. Follow Up 1 Year Coding Level of Care Code Off vis,est,level 3 Diagnoses Hypertension I10 High cholesterol E78.00 Diabetes E11.9 07/15/17 1231 <Electronically signed by Usman Smalls DO> Date Usman Smalls DO Cosigner Signature: Date (if applicable) CC: HEMOGLOBIN A1C Collected: 07/15/2017 Status: F Source: [place] 11:50 AM [facility] REPOSITORY TYPE CODE TESTS RESULT OUT OF RANGE REFERENCE UNITS LAB L501.9985 4.2-6.3 % Normal HGB A1C 5.8 Performed By: #### L501.9985, L500.4100 #### [facility] [address] [place], [place], [id number] LIPID PROFILE Collected: 07/15/2017 Status: F Source: [place] 11:50 AM [facility] REPOSITORY TYPE CODE TESTS RESULT OUT OF RANGE REFERENCE UNITS LAB L501.4900 200 mg/dL High CHOL 203 Result Comment: <200 mg/dL Desirable 200-240 mg/dL Borderline >240 mg/dL High Risk LAB L501.5000 mg/dL Normal TRIG 134 Result Comment: The drugs N-Acetylcysteine and Metamizole may falsely depress this assay. Serum Triglycerides Reference Interval Normal <150 mg/dL Borderline high 150 - 199 mg/dL High 200 - 499 mg/dL Very High > or = 500 mg/dL LAB L501.6400 mg/dL Normal HDL 43 Result Comment: The drugs N-Acetylcysteine and Metamizole may falsely depress this assay. Reference Range HDL <40 mg/dL Low HDL Cholesterol HDL >or= 60 mg/dL High HDL Cholesterol LAB L501.6500 0-130 mg/dL High LDL 133 LAB L501.6600 5-40 mg/dL Normal VLDL 27 Performed By: #### L501.9985, L500.4100 #### [facility] [address] [place], [address] ALLERGIES ALLERGIES DATE TYPE / CODE NAME / CODE REACTION SEVERITY SOURCE 02/16/2018 Drug carbenicillin Other Unknown [place] Allergy/416 indanyl Community 601704(SNOM sodium/[id number]([facility] ED CT) XNORM) Repository ENCOUNTERS ENCOUNTERS ADMIT/DISCHARGE ACCOUNT ADMITTING ENCOUNTER LOCATION SOURCE NUMBER CLASS 02/17/2018 [id number] Ambulatory [place] 7 [facility] ing:LAB Repository 02/16/2018/ [id number] Ambulatory BMSBuilding:B [place] 8 9 [facility] Repository 02/10/2018/ [id number] Emergency [place] 8 8 [facility] ing:ED Repository 07/15/2017 [id number] Ambulatory [place] 1 [facility] ing:LAB Repository 07/15/2017/ [id number] Ambulatory BMSBuilding:B [place] 8 4 [facility] Repository PAYERS PAYERS ENCOUNTER GUARANTOR PAYER SUBSCRIBER SOURCE 02/17/2018 APOLINARREMI [id number] Primary APOLINAR BURNSDOB: [place] Insurance:[employer] [id number] [place] [facility] [address]Yjr: [phone]) Number: Repository [phone] () [id number] Date:[id number] [address] [place] [address]ED: 02/17/2018 Secondary NOT GIVENUNK [place] Insurance:SELF PAY [facility] Number: Effective Repository Date:2018-02-17 02/16/2018 APOLINAR [id number] Primary APOLINAR BURNSDOB: [place] Insurance:[employer] [id number] [place] [facility] [address]Cel: [phone]) Number: Repository [phone] () [id number] Date:[id number] [address] [place] [address]LE: 02/16/2018 Secondary NOT GIVENUNK [place] Insurance:SELF PAY [facility] Number: Effective Repository Date:2018-02-16 02/10/2018 APOLINAR [id number] Primary APOLINAR BURNSDOB: [place] Insurance:[employer] [id number] [place] [facility] [address]Tel: [phone]) Number: Repository [phone] () [id number] Date:1847-50-90IM [address] [address]ZL: 02/10/2018 Secondary NOT GIVENUNK [place] Insurance:SELF PAY [facility] Number: Effective Repository Date:2018-02-10 07/15/2017 APOLINAR [id number] Primary APOLINAR BURNSDOB: [place] Insurance:[employer] [id number] [place] [facility] [address]Tel: [phone]) Number: Repository [phone] () [id number] Date:[id number] [address] [address]CA: 07/15/2017 Secondary NOT GIVENUNK [place] Insurance:SELF PAY [facility] Number: Effective Repository Date:2017-07-15 07/15/2017 APOLINAR [id number] Primary APOLINAR BURNSDOB: [place] Insurance:[employer] [id number] [place] [facility] [address]Tel: [phone]) Number: Repository [phone] () [id number] Date:[id number] [address] [address]FM: 07/15/2017 Secondary NOT GIVENUNK [place] Insurance:SELF PAY [facility] Number: Effective Repository Date:2017-07-15
== END ==
PROVIDERS: Nurse Practitioner Family; Family Provider Family Medicine; PCP Family Medicine; Referring Provider Family Medicine; Visit Provider Family Medicine
DX: I10 Essential (primary) hypertension (principal); E78.5 Hyperlipidemia, unspecified
CPT/HCPCS: 36415; 80053; 80061; 85025

== ENCOUNTER → 2018-03-24 10:22 | Outpatient (CLI) | payer MEDICARE, SELFPAY ==
[2018-02-17 09:05] VITALS: BMI 25.2
[2018-03-24 12:51] LABS: Vitamin B12 355 pg/mL (211-911)
[2018-03-24 13:54] LABS: AST(SGOT) 26 U/L (15-37); Alanine Aminotransfer ALT/SGPT 40 U/L (16-61); Albumin, Serum 3.8 g/dL (3.2-5.0); Alkaline Phosphatase 80 U/L (45-117); Anion Gap 12 (5-15); BUN 20 mg/dL (7-18); BUN/Creat Ratio 14.2 RATIO (10-20); Calcium,Total 8.7 mg/dL (8.5-10.1); Chloride 106 mmol/L (98-107); Creatinine, Serum 1.41 mg/dL (0.70-1.30); EST Glomerular Filtration Rate 52 mL/min (>60); Est Glom Filt Rate - Afr Amer 63 mL/min (>60); Glucose 149 mg/dL (74-106); Potassium 4.1 mmol/L (3.5-5.1); Protein, Total 7.8 g/dL (6.4-8.2); Sodium Level 141 mmol/L (136-145); Thyroid Stim Hormone (TSH) 0.86 uIU/mL (0.358-3.74)
[2018-03-24 15:45] LABS: Bacteria 0 SEEN /hpf (None Seen); Red Blood Cells-Urine 0 SEEN /hpf (0-5); Squamous Epithelial Cells - UA 0 SEEN /hpf (0-5); White Blood Cells 0 SEEN /hpf (0-5)
[2018-03-24 17:47] LABS: Color, Urine Yellow (Yellow); Glucose, Dipstick Normal (Normal); Ketone-Dipstick Negative (Negative); Leukocyte Esterase-Dipstick Negative /ul (Negative); Nitrite-Dipstick Negative (Negative); Occult Blood-Urine 25 /ul (Negative); Protein-Dipstick 500 mg/dl (Negative); Specific Gravity, Urine 1.025 (1.002-1.030); Urine Bilirubin Dipstick Negative (Negative); Urine Clarity Clear (Clear); Urine Urobilinogen Normal (Normal)
[2018-03-24 19:00] LABS: Fine Granular Cast- Urine 0-5 SEEN /lpf (0-5); Hyaline Cast 0 SEEN /lpf (0-5); Mucous, Urine 1+ /hpf (<or=2+)
== END ==
PROVIDERS: Family Provider Family Medicine; PCP Family Medicine; Visit Provider Family Medicine
DX: I10 Essential (primary) hypertension (principal)
CPT/HCPCS: 36415; 80053; 81001; 82607; 82746; 84443

== ENCOUNTER 2018-05-04 14:39 | Emergency (ER) | payer MEDICARE, SELFPAY ==
[2018-02-17 09:05] VITALS: BMI 25.2
[2018-05-04 14:40] VITALS: BP 168/118; PULSE 104; RESP 18; TEMP 36.6; O2SAT 95; BMI 26.5
--- NOTE | 2018-05-04 15:05 | EKG12_ITS ---
Test Reason : HTN Blood Pressure : / mmHG Vent. Rate : 082 BPM Atrial Rate : 082 BPM P-R Int : 172 ms QRS Dur : 090 ms QT Int : 382 ms P-R-T Axes : 023 -15 010 degrees QTc Int : 446 ms Sinus rhythm with marked sinus arrhythmia Possible Left atrial enlargement Left ventricular hypertrophy Abnormal ECG Confirmed by JORGE L ORR, TAMERA ([id number]), editorial cartoonist CORTNEY NUÑEZ ([id number]) on 05/07/2018 8:25:56 AM Referred By: COLUMBA Confirmed By:TAMERA COATS MD
--- NOTE | 2018-05-04 15:06 | CT_ITS ---
STUDY: CTA NECK WITH CONTRAST REASON FOR EXAM: Male, 78 years old. Dizziness RADIATION DOSAGE (If Supplied By Facility): CTDIvol = ( 29.44 ) mGy, DLP = ( 1502.16 ) mGycm TECHNIQUE: CT angiography with multi-detector data acquisition was performed from the aortic arch to the skull base following intravenous administration of 100 ml of Isovue 370 contrast. MIP images were reconstructed from the axial data set. Post-processing of the angiographic images was performed, with multiplanar reformation and 3D reconstruction. Individualized dose optimization techniques were used for this CT. COMPARISON: None. FINDINGS: AORTIC ARCH: Normal visualized aortic arch. Normal origins of the brachiocephalic, left common carotid, and left subclavian arteries. RIGHT CAROTID ARTERIES: Normal right common carotid artery (CCA). There is moderate atherosclerotic plaque formation with moderate narrowing of the right carotid bulb. Normal origin of the right internal carotid (ICA) artery without a hemodynamically significant stenosis. Normal visualized cervical portion of the right internal carotid artery. Normal origin of the right external carotid artery (ECA). LEFT CAROTID ARTERIES: Normal left common carotid artery (CCA). There is mild atherosclerotic plaque formation with minimal narrowing of the left carotid bulb. Normal origin of the left internal carotid (ICA) artery without a hemodynamically significant stenosis. Normal visualized cervical portion of the left internal carotid artery. Normal origin of the left external carotid artery (ECA). VERTEBRAL ARTERIES: There is enhancement within the bilateral vertebral arteries with a small right vertebral artery, and a dominant left vertebral artery. There is no suspicious enhancing lesion. No airway narrowing or deviation, or suspicious jugular chain lymphadenopathy. CT/CTA Neck W/WO Contrast IMPRESSION: Mild to moderate calcified atherosclerotic plaque in both common carotid artery bulbs without significant stenosis in either CCA or ICA Small right vertebral artery Electronically Signed: Harvey Daniels MD at 17:01 EST , Service support ,
--- NOTE | 2018-05-04 15:06 | CT_ITS ---
STUDY: CTA OF THE BRAIN REASON FOR EXAM: Male, 78 years old. Dizziness, history of CVA RADIATION DOSAGE (If Supplied By Facility): CTDIvol = ( 29.44 ) mGy, DLP = ( 1502.16 ) mGycm TECHNIQUE: CT angiography was performed with a multi-detector CT scanner. Data acquisition was obtained from the skull base through the vertex following intravenous administration of 100 ml of Isovue 370. MIP images were reconstructed from the axial data set. Post-processing of the angiographic images was performed, with multiplanar reformation and 3D reconstruction. Individualized dose optimization techniques were used for this CT. COMPARISON: None. FINDINGS: Normal bilateral petrous carotid arteries. Normal right cavernous carotid artery with a normal supraclinoid bifurcation. Normal left cavernous carotid artery with a normal supraclinoid bifurcation. Normal right A1 segments of the anterior cerebral artery. Normal left A1 segments of the anterior cerebral artery. Normal intact anterior communicating artery (ACOM). Normal bilateral A2 segments of the anterior cerebral arteries. Normal right M1 and M2 segments of the middle cerebral arteries, with a normal M1 bifurcation. Normal left M1 and M2 segments of the middle cerebral arteries, with a normal M1 bifurcation. Normal right posterior communicating artery (PCOM). Normal left posterior communicating artery (PCOM). Normal bilateral vertebral arteries. Normal basilar artery with a normal basilar bifurcation. The visualized bilateral superior cerebellar (SCA) arteries are normal. Normal bilateral P1, P2 and visualized P3 segments of the posterior cerebral arteries. There is no demonstrated aneurysm of the tribe of Byrne. 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 CT/CTA Head W/WO Contrast IMPRESSION: Normal tribe of Byrne without a demonstrated aneurysm or hemodynamically significant stenosis. Electronically Signed: Harvey Daniels MD at 16:59 EST , Service support ,
--- NOTE | 2018-05-04 15:10 | RAD_ITS ---
STUDY: X-RAY CHEST REASON FOR EXAM: Male, 78 years old. Hypertension. TECHNIQUE: Single AP portable view of the chest. COMPARISON: Comparison is made with prior study dated March 22, 2014. FINDINGS: Hyperinflation. Decreased bronchovascular markings in keeping with emphysematous change worse in the right upper lobe. There is no demonstrated pleural abnormality. Normal size heart. Normal mediastinum and yanna. Normal visualized pulmonary arteries. There is atherosclerotic tortuosity of the aortic arch and descending thoracic aorta. There are diffuse degenerative changes of the visualized thoracic spine. Normal visualized ribs, clavicles, and shoulders. There is no demonstrated abnormality of the visualized soft tissue structures of the upper abdomen. RAD/Chest 1 View (Portable) IMPRESSION: Hyperinflation. Emphysematous changes. Electronically Signed: David Gaines MD at 15:26 EST , Service support ,
--- NOTE | 2018-05-04 15:12 | ED.DCSUM_ITS ---
- ER Visit Summary Date of Service: 05/04/18 Chief Complaint: Hypertension, falling History of Present Illness: The patient is a 78 M with a history of hypertension. Patient states his been running high for years. Patient states he has had a few episodes of dizziness and falls over the past several months. He states that he walks for half a mile or a mile, then becomes dizzy and falls forward. He does not feel like he has chest pain or palpitations. He denies syncope. He was seen by his primary care physician today and sent into the ER for further evaluation. Patient reportedly is refusing to take any further blood pressure medication and when asking about his medication he denies taking it regularly. Physical Examination: Blood pressure in triage was 168/118 with a heart rate of 104. The time of my examination blood pressure is 196/115. Head and neck examination is unremarkable. Heart is regular rate and rhythm. Lungs sounds are clear. Abdomen is soft nontender. Neuro exam reveals normal strength and sensation throughout. NIH score is 0. He has normal patellar reflexes. Test Results: EKG is sinus 82 with LVH. No acute ischemia. Chest x-ray shows hyperinflation. Emphysematous changes noted. CBC is normal. Chemistry studies significant for a creatinine 1.47 which is consistent with his baseline. Troponin is less than 0.015. CTA of the head is unremarkable. CTA of the neck shows mild to moderate calcified plaques in both common carotid artery bulbs without significant stenosis in either the CCA or ICA. He has a small right vertebral artery noted. Emergency Department Course and Treatment: Patient's blood pressure continued to be elevated here. Patient does admit he did not take his metoprolol today. He did allow me to order it, but when the medication was brought from pharmacy patient refused stating that he was not going to pay $50 for medication here when he has the medicine at home. I did discuss with him the importance of blood pressure control. Treatment Plan: [] Disposition: Discharge Impression: Hypertension This note was generated with [employer] dictation software. It may contain incorrect words, spelling, and punctuation that were not noted in review of the chart prior to signing ED Disposition - Plan for ED Patient: Referrals: Marcial Last MD [Primary Care Provider] -
[2018-05-04 15:14] VITALS: BP 196/115; PULSE 101; RESP 17; O2SAT 94
[2018-05-04] MEDS: 0.9% Normal Saline 1,000 ML 15 ML IV (15:18)
[2018-05-04 15:34] LABS: Absolute Lymphocyte Count 1.64 X10^3/ul (0.83-4.51); Absolute Neutrophil Count 3.6 X10^3/uL (2.0-7.7); Basophil# 0.03 X10^3/uL; Basophil% 0.5 % (0-1); Eosinophil# 0.13 X10^3/uL; Eosinophils% 2.1 % (0-5); Hematocrit 45.9 % (40-54); Hemoglobin 15.3 g/dl (13.0-16.5); Lymphocyte # 1.64 X10^3/ul (4.0); Lymphocyte % 26.7 % (19-41); Mean Corp Hgb Conc 33.3 g/gl (32-36); Mean Platelet Vol. 9.9 fl (6.2-12.0); Monocyte# 0.77 X10^3/uL; Monocyte% 12.5 % (0-10); Neutrophil # 3.56 X10^3/uL (2.7-7.7); Platelet Count 227 K/mm3 (150-450); RBC Distribution Width CV 12.1 % (11.6-14.6); RBC Distribution Width SD 44.8 fl (35.1-43.9); White Blood Count 6.1 K/mm3 (4.4-11.0)
[2018-05-04 15:36] LABS: POSITIVE COUNT NO; POSITIVE DIFFERENTIAL NO; POSITIVE MORPHOLOGY NO
[2018-05-04 16:06] LABS: Anion Gap 6 (5-15); BUN 18 mg/dL (7-18); BUN/Creat Ratio 12.2 RATIO (10-20); Calcium,Total 8.6 mg/dL (8.5-10.1); Chloride 108 mmol/L (98-107); Creatinine, Serum 1.47 mg/dL (0.70-1.30); EST Glomerular Filtration Rate 49 mL/min (>60); Est Glom Filt Rate - Afr Amer 60 mL/min (>60); Estimated Creatinine Clearance 43.45 ml/min; Glucose 151 mg/dL (74-106); Sodium Level 140 mmol/L (136-145)
[2018-05-04 16:23] LABS: Bacteria 0 SEEN /hpf (None Seen); Mucous, Urine 0 SEEN /hpf (<or=2+); Red Blood Cells-Urine 0 SEEN /hpf (0-5); Squamous Epithelial Cells - UA 0 SEEN /hpf (0-5); White Blood Cells 0 SEEN /hpf (0-5)
[2018-05-04 16:34] LABS: Color, Urine Yellow (Yellow); Glucose, Dipstick Normal (Normal); Ketone-Dipstick Negative (Negative); Leukocyte Esterase-Dipstick Negative /ul (Negative); Nitrite-Dipstick Negative (Negative); Occult Blood-Urine 10 /ul (Negative); Protein-Dipstick 100 mg/dl (Negative); Specific Gravity, Urine 1.015 (1.002-1.030); Urine Bilirubin Dipstick Negative (Negative); Urine Clarity Clear (Clear); Urine Urobilinogen Normal (Normal)
[2018-05-04 17:38] VITALS: BP 193/94; PULSE 81; RESP 15; O2SAT 94
--- NOTE | 2018-05-04 17:45 | ED.DEP ---
ED Disposition - Plan for ED Patient: Disposition: Home or Assisted Living Instructions: ED HTN Established Referrals: Marcial Last MD [Primary Care Provider] - 1-2 Weeks
[2018-05-04 17:49] VITALS: BP 193/94; PULSE 80; RESP 15; O2SAT 96
--- NOTE | 2018-05-04 17:49 | ED.RN ---
PT EDUCATED ABOUT HTN, GIVEN WRITTEN AND VERBAL DISCHARGE INSTRUCTIONS. PT VERBALIZES UNDERSTANDING. PT EDUCATED TO TAKE HIS BP MEDICATION PRESCRIBED. PT REFUSES MEDICATION IN ED. PT IV D/C AND COVERED WITH 2X2 GAUZE AND PAPER TAPE. PT AMBULATES OUT OF DEPT WITH .
== END 2018-05-04 17:51 | disposition home or self-care (01) ==
PROVIDERS: Emergency Provider Emergency Medicine; Family Provider Family Medicine; PCP Family Medicine
DX: I10 Essential (primary) hypertension (principal); E11.9 Type 2 diabetes mellitus without complications
CPT/HCPCS: 70496; 70498; 71045; 80048; 81001; 84484; 85025; 93005; 99284; J7030; Q9967

== ENCOUNTER 2018-07-17 10:09 | Emergency (ER) | payer MEDICARE, SELFPAY ==
[2018-07-17 10:10] VITALS: BP 237/128; PULSE 54; RESP 16; TEMP 36.5; O2SAT 97; BMI 27.2
--- NOTE | 2018-07-17 10:30 | EKG12_ITS ---
Test Reason : HTN Blood Pressure : / mmHG Vent. Rate : 049 BPM Atrial Rate : 227 BPM P-R Int : 000 ms QRS Dur : 092 ms QT Int : 448 ms P-R-T Axes : 023 -18 -05 degrees QTc Int : 404 ms Sinus Bradycardia Voltage criteria for left ventricular hypertrophy Abnormal ECG Confirmed by NATHANIEL ORR, HERNESTO ([id number]), assignment editor LAURA RODRIGUEZ ([id number]) on 07/19/2018 11:57:39 AM Referred By: COLUMBA Confirmed By:HERNESTO ARMSTRONG MD
[2018-07-17 11:19] LABS: Anion Gap 6 (5-15); BUN 23 mg/dL (7-18); BUN/Creat Ratio 14.4 RATIO (10-20); Calcium,Total 9.7 mg/dL (8.5-10.1); Chloride 105 mmol/L (98-107); EST Glomerular Filtration Rate 45 mL/min (>60); Est Glom Filt Rate - Afr Amer 54 mL/min (>60); Estimated Creatinine Clearance 39.92 ml/min; Glucose 103 mg/dL (74-106); Potassium 4.4 mmol/L (3.5-5.1); Sodium Level 140 mmol/L (136-145)
[2018-07-17 11:20] LABS: Absolute Lymphocyte Count 1.87 X10^3/ul (0.83-4.51); Absolute Neutrophil Count 3.9 X10^3/uL (2.0-7.7); Basophil# 0.03 X10^3/uL; Basophil% 0.4 % (0-1); Eosinophil# 0.15 X10^3/uL; Eosinophils% 2.2 % (0-5); Hemoglobin 17.6 g/dl (13.0-16.5); Lymphocyte # 1.87 X10^3/ul (4.0); Lymphocyte % 27.3 % (19-41); Mean Corp Hgb Conc 34.5 g/gl (32-36); Mean Corpuscular Hgb 33.8 pg (27.0-32.0); Mean Corpuscular Volume 98.1 fL (80-94); Monocyte# 0.92 X10^3/uL; Monocyte% 13.4 % (0-10); Neutrophil # 3.87 X10^3/uL (2.7-7.7); Neutrophil % 56.6 % (47-70); POSITIVE COUNT NO; POSITIVE DIFFERENTIAL NO; POSITIVE MORPHOLOGY NO; Platelet Count 245 K/mm3 (150-450); RBC Distribution Width CV 12.1 % (11.6-14.6); RBC Distribution Width SD 43.7 fl (35.1-43.9); White Blood Count 6.9 K/mm3 (4.4-11.0)
--- NOTE | 2018-07-17 11:30 | ED.DCSUM_ITS ---
- ER Visit Summary Date of Service: 07/17/18 Chief Complaint: Hypertension History of Present Illness: The patient is a 78 M with history of hypertension. Patient states his blood pressure has been up recently. He had blood pressure medication refilled earlier this week. He states that he has been on metoprolol for quite some time hydrochlorothiazide was added. He denies chest pain, shortness of breath, or headache. Physical Examination: Blood pressure is 237/128, heart rate 54. Patient sitting upright in bed no acute distress. He has no complaints. Head neck examination unremarkable. Heart is bradycardic and regular. Lung sounds are clear. Abdomen is soft with no focal tenderness. Neuro exam is normal. Test Results: EKG is sinus bradycardia at 49 with no sign of acute ischemia. CBC was normal white count with hemoglobin is 17.6. Chemistry studies reveal BUN of 23 and a creatinine 1.6. Patient does have chronic renal insufficiency. Emergency Department Course and Treatment: Patient was given 10 mg of IV labetalol. Vital signs at this time is 195/78 with a heart rate of 53. Because his heart rate tolerated this well he will be given a second dose of labetalol. I spoke with Dr. Aguilera who was covering for Dr. Jamil today. In the office on patient's blood pressure was 156/96. Per the office note a prescription has also been sent for hydralazine that the patient has not yet received. We will write him for clonidine until his new prescription arrives. Treatment Plan: [] Disposition: Discharge Impression: Hypertension Addendum: Prior to the second dose of labetalol being given blood pressure is down into the 180s systolic. He will be discharged at this time to start the clonidine as previously planned. This note was generated with [employer] dictation software. It may contain incorrect words, spelling, and punctuation that were not noted in review of the chart prior to signing ED Disposition - Plan for ED Patient: Disposition: Home or Assisted Living Instructions: ED HTN Established Prescriptions: Clonidine HCl [Catapres] 0.2 mg PO BID #10 tablet Referrals: Marcial Last MD [Primary Care Provider] - 1 Week
[2018-07-17 11:44] VITALS: BP 184/94; PULSE 48; RESP 16; O2SAT 98
== END 2018-07-17 11:46 | disposition home or self-care (01) ==
PROVIDERS: Emergency Provider Emergency Medicine; Family Provider Family Medicine; PCP Family Medicine
DX: I12.9 Hypertensive chronic kidney disease with stage 1 through stage 4 chronic kidney disease, or unspecified chronic kidney disease (principal); E11.22 Type 2 diabetes mellitus with diabetic chronic kidney disease; N18.9 Chronic kidney disease, unspecified; M19.90 Unspecified osteoarthritis, unspecified site; Z86.73 Personal history of transient ischemic attack (TIA), and cerebral infarction without residual deficits; Z79.899 Other long term (current) drug therapy; Z87.891 Personal history of nicotine dependence
CPT/HCPCS: 80048; 85025; 93005; 96374; 96376; 99285; A4216

== ENCOUNTER 2018-07-23 07:12 | Emergency (ER) | payer MEDICARE, SELFPAY ==
[2018-07-23 07:13] VITALS: BP 139/80; PULSE 50; RESP 16; TEMP 36.6; O2SAT 97; BMI 25.5
--- NOTE | 2018-07-23 07:31 | ED.DCSUM_ITS ---
- ER Visit Summary Date of Service: 07/23/18 Chief Complaint: Constipation, high blood pressure, dizziness History of Present Illness: The patient is a 78 M who actually presents with multiple complaints. He states that yesterday he felt dizzy. He is actually not dizzy currently. This is been a chronic recurrent issue for months. He also complains of side effects due to hydrochlorothiazide. He was recently started on hydrochlorothiazide but since that time has complained of constipation and dry mouth. He stopped this yesterday. He was concerned because his blood pressure was higher at 165 today. He actually has an appointment with a primary care physician for next week. He states he did try some MiraLAX and had a small bowel movement yesterday but still feels constipated. He denies any chest pain, shortness of breath, abdominal pain, nausea or vomiting. Physical Examination: Blood pressure 139/80, heart rate 50, afebrile No distress No focal or lateralizing neurological deficits, normal strength and sensation Heart regular bradycardia Lungs clear Abdomen soft nontender nondistended Test Results: Not indicated Emergency Department Course and Treatment: In regards to the patient's dizziness this is been a chronic recurrent issue for at least several months. He is actually not dizzy currently. He has been previously evaluated for this. I do not believe any further emergent work-up in regards this is necessary at this time. He has already stopped the hydrochlorothiazide. I did advise that constipation dry mouth could certainly be related to this and to discuss other antihypertensive medications on his appointment next week. In regards to his constipation I advised that he initially just increase MiraLAX but if this does not work he could use magnesium citrate. He understands to return for new or worsening symptoms. He will keep his scheduled appointment for next week. Patient agreeable to this plan. He was discharged. Treatment Plan: [] Disposition: Discharge Impression: Constipation Medication side effects from hydrochlorothiazide Chronic dizziness This note was generated with [employer] dictation software. It may contain incorrect words, spelling, and punctuation that were not noted in review of the chart prior to signing ED Disposition - Plan for ED Patient: Referrals: Usman Smalls, [Primary Care Provider] -
--- NOTE | 2018-07-23 07:32 | ED.DEP ---
ED Disposition - Plan for ED Patient: Instructions: ED Constipation, ED Dizziness [facility] Referrals: Usman Smalls, [Primary Care Provider] - Additional Instructions: For your constipation I would initially recommend doubling and using 2 caps of MiraLAX a day if one is not working. If this is not effective you can try magnesium citrate. You can buy this at any pharmacy.
== END 2018-07-23 07:49 | disposition home or self-care (01) ==
LOC: ED 07:38
PROVIDERS: Emergency Provider Emergency Medicine; Family Provider Family Medicine; PCP Family Medicine
DX: K59.00 Constipation, unspecified (principal); R42 Dizziness and giddiness; I10 Essential (primary) hypertension; T50.2X5A Adverse effect of carbonic-anhydrase inhibitors, benzothiadiazides and other diuretics, initial encounter; Y92.9 Unspecified place or not applicable
CPT/HCPCS: 99282

== ENCOUNTER → 2020-11-08 14:58 | Outpatient (CLI) | payer MEDICARE, SELFPAY ==
[2020-11-08 16:38] LABS: Absolute Lymphocyte Count 1.63 X10^3/uL (0.83-4.51); Absolute Neutrophil Count 4.4 X10^3/uL (2.0-7.7); Basophil# 0.03 X10^3/uL; Basophil% 0.4 % (0-1); Eosinophil# 0.16 X10^3/uL; Eosinophils% 2.3 % (0-5); Hematocrit 46.1 % (40-54); Hemoglobin 15.3 g/dL (13.0-16.5); Lymphocyte # 1.63 X10^3/ul (0.83-4.51); Lymphocyte % 23.4 % (19-41); Mean Corp Hgb Conc 33.2 g/dL (32-36); Mean Corpuscular Volume 99.4 fL (80-94); Monocyte# 0.72 X10^3/uL; Monocyte% 10.3 % (0-10); NRBC Flagged by Analyzer 0 % (0-5); Neutrophil # 4.39 X10^3/uL (2.7-7.7); Neutrophil % 63.2 % (47-70); Platelet Count 282 K/mm3 (150-450); RBC Distribution Width CV 12.3 % (11.6-14.6); Red Blood Count 4.64 M/mm3 (4.6-6.2)
[2020-11-08 17:00] LABS: ALB/GLOB Ratio 0.8 RATIO (0.9-2.4); AST(SGOT) 20 U/L (15-37); Alanine Aminotransfer ALT/SGPT 27 U/L (16-61); Albumin, Serum 3.6 g/dL (3.2-5.0); Alkaline Phosphatase 68 U/L (45-117); Anion Gap 3 (5-15); BUN 21 mg/dL (7-18); BUN/Creat Ratio 14.2 RATIO (10-20); Calcium,Total 9.2 mg/dL (8.5-10.1); Chloride 105 mmol/L (98-107); Cholesterol 182 mg/dL (200); Creatinine, Serum 1.48 mg/dL (0.70-1.30); EST Glomerular Filtration Rate 49 mL/min (>60); Est Glom Filt Rate - Afr Amer 59 mL/min (>60); Globulin 4.7 g/dL (2.2-4.2); Glucose 148 mg/dL (74-106); High Density Lipoprotein 35 mg/dL; Potassium 3.9 mmol/L (3.5-5.1); Protein, Total 8.3 g/dL (6.4-8.2); Sodium Level 137 mmol/L (136-145); Thyroid Stim Hormone (TSH) 0.44 uIU/mL (0.358-3.74); Triglycerides 199 mg/dL; Very Low Density Lipoprotein 40 mg/dL (5-40)
[2020-11-09 10:00] LABS: Hemoglobin A1c 5.7 % (3.8-5.6)
== END ==
PROVIDERS: PCP Family Medicine; Referring Provider Nurse Practitioner Family; Visit Provider Nurse Practitioner Family
DX: I10 Essential (primary) hypertension (principal); R55 Syncope and collapse; R73.09 Other abnormal glucose
CPT/HCPCS: 36415; 80053; 80061; 83036; 84443; 85025

== ENCOUNTER → 2020-11-29 10:16 | Outpatient (CLI) | payer MEDICARE, SELFPAY ==
--- NOTE | 2020-11-29 10:19 | EKG12_ITS ---
Test Reason : UNKNOWN Blood Pressure : / mmHG Vent. Rate : 068 BPM Atrial Rate : 068 BPM P-R Int : 170 ms QRS Dur : 092 ms QT Int : 424 ms P-R-T Axes : 061 002 045 degrees QTc Int : 450 ms Normal sinus rhythm Normal ECG Confirmed by NATHANIEL ORR, HERNESTO ([id number]), industrial editor LAURA RODRIGUEZ ([id number]) on 12/03/2020 12:58:56 PM Referred By: Magan Awan Confirmed By:HERNESTO ARMSTRONG MD
--- NOTE | 2020-11-29 12:55 | CDU_ITS ---
Reason For Study: Syncope and collapse Rt. Velocities/BP Lt. Velocities/BP Prox CCA 89.1/9.5 cm/sec. Prox CCA 76.5/11.4 cm/sec. Mid CCA 64.3/12.1 cm/sec. Mid CCA 74/11.4 cm/sec. Dist CCA 49.9/10.8 cm/sec. Dist CCA 94.9/16.3 cm/sec. Prox ICA 34.3/8.8 cm/sec. Prox ICA 45.4/5.8 cm/sec. Mid ICA 73/12.6 cm/sec. Mid ICA 86/13.5 cm/sec. Dist ICA 113.4/22.5 cm/sec. Dist ICA 90.4/19 cm/sec. Rt. ICA/CCA = 1.76. Lt. ICA/CCA = 1.19. Prox ECA 104.7/13.4 cm/sec. Prox ECA 87.5/10.2 cm/sec. Rt. Vert. 43.3/9 cm/sec. Lt. Vert. 56.4/12.4 cm/sec. Right Extracranial There is homogeneous, smooth atherosclerotic plaque noted in the right common carotid artery. There is heterogeneous, irregular atherosclerotic plaque noted in the right internal carotid artery. There is heterogeneous, irregular atherosclerotic plaque noted in the right external carotid artery. Antegrade flow is noted in the right vertebral artery. Left Extracranial There is homogeneous, smooth atherosclerotic plaque noted in the left common carotid artery. There is homogeneous, smooth atherosclerotic plaque noted in the left internal carotid artery. There is intimal thickening but no significant atherosclerotic plaque noted in the left external carotid artery. Antegrade flow is noted in the left vertebral artery. Procedure Carotid Duplex 54122. This is a Carotid Duplex examination using B-mode, color flow and specral Doppler. Exam performed in department. VL/Carotid Duplex Ultrasound Interpretation Summary Minimal irregular plaque at the proximal right internal carotid artery with les s than 50% stenosis Less than 50% stenosis right external carotid artery Widely patent left carotid bulb and proximal internal carotid artery with intim al thickening and no hemodynamically significant plaque. Less than 50% stenosis left internal carotid artery Less than 50% stenosis left external carotid artery Patent and antegrade vertebrals bilaterally Ordering Physician: Magan Awan Referring Physician: Stu Smalls M.D. Performed By: Nica Arredondo RVT
--- NOTE | 2020-11-29 13:15 | CT_ITS ---
STUDY: CT BRAIN WITH AND WITHOUT CONTRAST REASON FOR EXAM: Male, 80 years old. Syncopal episodes. RADIATION DOSAGE (If Supplied By Facility): CTDIvol = ( 44.99 ) mGy, DLP = ( 1648.46 ) mGycm TECHNIQUE: Transaxial CT imaging of the brain was performed pre and post contrast administration. The examination was performed with intravenous administration of IV 50mL Isovue-300. Individualized dose optimization techniques were used for this CT. COMPARISON: None. FINDINGS: Normal soft tissue structures. Normal calvarium. There is mild cerebral atrophy with widening of the extra-axial spaces and ventricular dilatation. There are areas of decreased attenuation within the white matter tracts of the supratentorial brain, consistent with microvascular disease changes. 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 Normal brainstem. Normal cerebellum. There is no intracranial hemorrhage. There are no findings of an acute ischemic infarction. Atherosclerotic calcification of the vertebral arteries and cavernous portions of the internal carotid arteries bilaterally. Normal visualized paranasal sinuses. CT/Brain/Head W/WO Contrast IMPRESSION: Chronic involutional changes of the brain. Electronically Signed: David Gaines MD at 14:46 EDT , Service support ,
== END ==
PROVIDERS: PCP Family Medicine; Referring Provider Nurse Practitioner Family; Visit Provider Nurse Practitioner Family
DX: R55 Syncope and collapse (principal); I10 Essential (primary) hypertension
CPT/HCPCS: 70470; 93005; 93880; Q9967

== ENCOUNTER 2020-12-06 17:09 | Emergency (ER) | payer MEDICARE, SELFPAY ==
[2020-12-06 17:10] VITALS: BP 130/97; PULSE 85; RESP 16; TEMP 37; O2SAT 97; BMI 24.4
--- NOTE | 2020-12-06 17:57 | EX.ED.DYSGE1 ---
HPI History of Present Illness Chief Complaint: General Illness Narrative Narrative: 80-year-old male presenting for evaluation with his . Apparently the patient has dementia and wandered off. He was found in the parking lot. His states that he fell. He states he was not lightheaded or dizzy when he fell. He did not hit his head. He has no complaints of pain, illness. PFSH PFSH Medical History Arthritis Cataract Cataract Diabetes High blood pressure High cholesterol Syncope and collapse Home Medications amlodipine 10 mg tablet 10 mg PO DAILY #90 tab 11/08/20 [Rx Last Taken Unknown] metoprolol tartrate 50 mg tablet 50 mg PO BID #180 tab 11/08/20 [Rx Last Taken Unknown] Allergy/AdvReac Type Severity Reaction Status Date / Time carbenicillin indanyl sodium AdvReac Other Verified 12/06/20 17:10 [From Geocillin] clonidine AdvReac Bitter Verified 12/06/20 17:10 tasting lisinopril AdvReac Other Verified 12/06/20 17:10 Family History Father Hypertension Arthritis Surgical History History of carotid artery dissection History of cataract surgery History of hernia repair Social History Smoking Status: Former smoker how long ago did patient quit smokin years ago alcohol intake: never substance use type: does not use what type of physical activity do you participate in: walking frequency: daily ROS ROS ED Constitutional Constitutional ED: Denies chills or fever(s) Eyes Eyes: Denies blurry vision or diplopia ENT ENT ED: Denies rhinorrhea or sore throat Cardiovascular Cardiovascular: Denies chest pain or palpitations Respiratory/Chest Respiratory/Chest: Denies cough or dyspnea Gastrointestinal Gastrointestinal: Denies abdominal pain or nausea Genitourinary Genitourinary ED: Denies dysuria or hematuria Musculoskeletal Musculoskeletal: Denies arthralgias, back pain, myalgias or neck pain Integumentary Denies Abrasions or rash Neurologic Neurologic: Denies headache(s), paresthesias or weakness EXAM Physical Exam Const Vital Signs: 12/06/20 17:10 Temperature 98.6 F Temperature Source Oral Pulse Rate 85 Respiratory Rate 16 Blood Pressure 130/97 H Blood Pressure Mean 108 Pulse Ox 97 Oxygen Delivery Method Room Air Positive well nourished General Appearance ED: NAD HEENT Reports moist mucous membranes Negative for trauma Eyes PERRL and EOMs intact bilaterally Neck no lymphadenopathy and supple Cardio regular rate and regular rhythm GI normal to inspection, nondistended, normoactive bowel sounds Neuro oriented x3 and CN's II-XII intact bilaterally Sensorium / Orientation: alert Psych mental status grossly normal Skin no rashes or lesions noted MDM MDM MDM Narrative Medical decision making narrative: 80-year-old male presenting with his for evaluation after he wandered off. There is a history of a fall but he has no injuries. He denies headache, dizziness. He states he feels fine. Patient's vital signs are stable and he is afebrile. I think he is stable to be discharged home. Impression: 1. Fall 2. History dementia Discharge Plan Triage Chief Complaint: General Illness ED Provider: Rufino Ornelas Dx/Rx/DC Orders Prescriptions: No Action metoprolol tartrate 50 mg tablet 50 mg PO BID Qty: 180 RF: 1 amlodipine 10 mg tablet 10 mg PO DAILY Qty: 90 RF: 1 Primary Care Provider: Usman Smalls
== END 2020-12-06 18:23 | disposition home or self-care (01) ==
PROVIDERS: Emergency Provider Student in an Organized Health Care Education/Training Program; PCP Family Medicine
DX: F03.90 Unspecified dementia, unspecified severity, without behavioral disturbance, psychotic disturbance, mood disturbance, and anxiety (principal); W19.XXXA Unspecified fall, initial encounter; Y93.9 Activity, unspecified; Y92.481 Parking lot as the place of occurrence of the external cause; E11.36 Type 2 diabetes mellitus with diabetic cataract; E78.00 Pure hypercholesterolemia, unspecified; M19.90 Unspecified osteoarthritis, unspecified site; Z79.899 Other long term (current) drug therapy; Z87.891 Personal history of nicotine dependence
CPT/HCPCS: 99284

== ENCOUNTER 2021-03-18 14:29 | Emergency (ER) | payer MEDICARE, SELFPAY ==
[2021-03-18 14:32] VITALS: BP 121/70; PULSE 52; RESP 18; TEMP 36.9; O2SAT 96; BMI 25.0
[2021-03-18 14:39] VITALS: TEMP 36.9
--- NOTE | 2021-03-18 15:22 | CT_ITS ---
INDICATION: fall EXAMINATION: CT BRAIN - CT Head or Brain W/O Contrast Injection TECHNIQUE: Multiple axial images were obtained of the head without intravenous contrast. A radiation dose optimization technique was used for this scan. IV Contrast dosage and agent: None. COMPARISON: 11/29/2020. FINDINGS: Extensive areas of low attenuation are visualized in the periventricular and subcortical white matter that demonstrate no significant change in comparison to the prior study consistent with chronic microvascular disease, scattered chronic lacunar infarcts visualized demonstrating no change. Focal areas of encephalomalacia visualized consistent with normal vascular insult. No evidence of acute territorial infarct is seen. Prominence of the ventricles and sulci consistent with chronic atrophic brain changes demonstrates no significant change in comparison to the prior study. No evidence of intracranial mass or mass effect, no evidence of midline shift is seen. No structural midline barium abnormality is seen. The posterior fossa is unremarkable, low-lying cerebellar tonsils but no evidence of tonsillar herniation is seen. No evidence of sellar or parasellar masses seen. Opacification with a fluid level is visualized in the seated dependent left maxillary sinus, the visualized maxillary wall demonstrate no evidence of fracture. The left orbital floor demonstrates no evidence of fracture. Unremarkable aeration of the paranasal sinuses and the mastoid air cells. Cerumen visualized within the left external auditory canal. Degenerative bone changes are seen. Both globes, extraocular muscles, optic nerves and retrobulbar fat appear unremarkable. CT/Brain/Head without Contrast IMPRESSION: Hemorrhage or acute territorial infarct. There is high suspicion for acute on chronic pathology would recommend further evaluation with an MRI of the brain. Opacification visualized in the left maxillary sinus suboptimally evaluated, however demonstrates increase in comparison to the prior study.. Electronically Signed: Ector Mcdaniel MD at 15:52 EST Tel , Service support ,
--- NOTE | 2021-03-18 15:23 | EX.ED.GENINJ ---
HPI History of Present Illness Chief Complaint: Fall Informant: patient and spouse/S.O. Onset/Context/Timing Onset: Today Mechanism/Context: Fall Quality of Pain: Aching Current Severity: Mild Maximum Severity: Mild Narrative Narrative: Patient presents after fall. Patient reported he was in a parking lot when he tripped over a curb and fell striking his head. No loss of consciousness. He has superficial lacerations just above the right eyebrow. Patient denies headache or neck pain. He denies having palpitations or chest pain prior to falling. reports his tetanus shot is up-to-date. He is not currently on anticoagulants. [facility] Medical History Arthritis Cataract Cataract Diabetes High blood pressure High cholesterol Syncope and collapse Home Medications amlodipine 10 mg tablet 10 mg PO DAILY #90 tab 03/12/21 [Rx Last Taken Unknown] metoprolol tartrate 50 mg tablet 50 mg PO BID #180 tab 03/12/21 [Rx Last Taken Unknown] Allergy/AdvReac Type Severity Reaction Status Date / Time carbenicillin indanyl sodium AdvReac Other Verified 03/18/21 14:32 [From Geocillin] clonidine AdvReac Bitter Verified 03/18/21 14:32 tasting lisinopril AdvReac Other Verified 03/18/21 14:32 Family History Father Hypertension Arthritis Surgical History History of carotid artery dissection History of cataract surgery History of hernia repair Social History Smoking Status: Former smoker how long ago did patient quit smokin years ago alcohol intake: never substance use type: does not use what type of physical activity do you participate in: walking frequency: daily ROS ROS ED Constitutional Constitutional ED: Denies chills or fever(s) Eyes Eyes: Denies change in vision ENT ENT ED: Denies sore throat Cardiovascular Cardiovascular: Denies chest pain Respiratory/Chest Respiratory/Chest: Denies cough or dyspnea Gastrointestinal Gastrointestinal: Denies abdominal pain, nausea or vomiting Musculoskeletal Musculoskeletal: Denies back pain or neck pain Integumentary Reports Abrasions; Denies rash Neurologic Neurologic: Denies headache(s) or weakness Allergic/Immunologic Allergic/Immunologic ED: Denies urticaria EXAM Physical Exam Const Vital Signs: 03/18/21 14:32 03/18/21 14:39 Temperature 98.4 F 98.4 F Temperature Source Oral Pulse Rate 52 L Respiratory Rate 18 Respiratory Effort Normal Respiratory Depth Normal Respiratory Pattern Normal Blood Pressure 121/70 H Blood Pressure Mean 87 Pulse Ox 96 Oxygen Delivery Method Room Air Room Air Positive well nourished and well developed General Appearance ED: well developed HEENT HEENT Narrative: 2 linear deep abrasions just above the lateral portion of the right eyebrow. Each measuring approximately 2 cm long. No bony tenderness. Extraocular movements fully intact. Eyes PERRL and EOMs intact bilaterally Neck full ROM Neck Narrative: No C-spine tenderness. Resp normal respiratory effort and clear to auscultation bilaterally Cardio regular rhythm Rate: regular rate GI normal to inspection, nondistended, normoactive bowel sounds and non-tender Palpation: soft Extremity normal to inspection Neuro oriented x3, moves all extremities and no focal motor deficits Sensorium / Orientation: alert Psych mental status grossly normal MDM MDM MDM Narrative Medical decision making narrative: Patient sent for head CT. I did confirm that he is not on anticoagulants. Radiography Diagnostic Testing: Clinical Impression(s) from Imaging Studies Brain CT 03/18/21 15:22 IMPRESSION: Hemorrhage or acute territorial infarct. There is high suspicion for acute on chronic pathology would recommend further evaluation with an MRI of the brain. Opacification visualized in the left maxillary sinus suboptimally evaluated, however demonstrates increase in comparison to the prior study.. Electronically Signed: Ector Mcdaniel MD at 15:52 EST Tel , Service support , Treatment and Re-Evaluation Comments:: Although final impression of the brain CT reads hemorrhage or acute infarct, in the body of the report it clearly states that there is no evidence of hemorrhage or acute infarct. I do not see any acute abnormalities on my review. The superficial lacerations above the right eyebrow are cleansed and sealed with Dermabond. He reports his tetanus is up-to-date. He will be discharged home with his . Discharge Plan Triage Chief Complaint: Fall ED Provider: Orly Cooper Dx/Rx/DC Orders Clinical Impression: Fall, Face lacerations Instructions: ED Fall with Uncertain Cause, ED Head Injury (Adult), ED Laceration: Skin Adhesive Prescriptions: No Action metoprolol tartrate 50 mg tablet 50 mg PO BID Qty: 180 RF: 1 amlodipine 10 mg tablet 10 mg PO DAILY Qty: 90 RF: 1 Primary Care Provider: Usman Smalls Referrals: Usman Smalls, [Primary Care Provider] - 1 Week Disposition Disposition: Home, Self Care
[2021-03-18 16:19] VITALS: BP 127/68; PULSE 56; RESP 15
== END 2021-03-18 16:25 | disposition home or self-care (01) ==
PROVIDERS: Emergency Provider Emergency Medicine; PCP Family Medicine
DX: S01.81XA Laceration without foreign body of other part of head, initial encounter (principal); W10.1XXA Fall (on)(from) sidewalk curb, initial encounter; Y92.481 Parking lot as the place of occurrence of the external cause; E11.36 Type 2 diabetes mellitus with diabetic cataract; E78.00 Pure hypercholesterolemia, unspecified; M19.90 Unspecified osteoarthritis, unspecified site; Z87.891 Personal history of nicotine dependence
CPT/HCPCS: 12013; 70450; 99284

== ENCOUNTER 2021-03-29 12:10 | Emergency (ER) | payer MEDICARE, SELFPAY ==
[2021-03-29 12:11] VITALS: BP 155/86; PULSE 96; RESP 20; TEMP 37.6; O2SAT 94; BMI 22.9
--- NOTE | 2021-03-29 12:17 | CT_ITS ---
STUDY: CT BRAIN WITHOUT CONTRAST REASON FOR EXAM: Male, 80 years old. Head injury due to a fall. RADIATION DOSAGE (If Supplied By Facility): CTDIvol = ( 44.99 ) mGy, DLP = ( 863.60 ) mGycm TECHNIQUE: Transaxial CT imaging of the brain was performed without administration of intravenous contrast material. Individualized dose optimization techniques were used for this CT. COMPARISON: Comparison is made with prior study dated 03/18/2021. FINDINGS: Normal soft tissue structures. Normal calvarium. There is moderate cerebral atrophy with widening of the extra-axial spaces and ventricular dilatation. There are areas of decreased attenuation within the white matter tracts of the supratentorial brain, consistent with microvascular disease changes. Old lacunar infarct in the right basal ganglia. Normal brainstem. Normal cerebellum. There is no intracranial hemorrhage. There are no findings of an acute ischemic infarction. Atherosclerotic plaque formation of the vertebral arteries and cavernous portions of the internal carotid arteries bilaterally. Partial opacification of the left maxillary sinus. CT/Brain/Head without Contrast IMPRESSION: Chronic involutional changes of the brain. Electronically Signed: David Gaines MD at 12:59 EST , Service support ,
--- NOTE | 2021-03-29 12:17 | CT_ITS ---
STUDY: CT CERVICAL SPINE WITHOUT CONTRAST REASON FOR EXAM: Male, 80 years old. Injury due to a fall. RADIATION DOSAGE (If Supplied By Facility): CTDIvol = ( 15.92 ) mGy, DLP = ( 388.66 ) mGycm TECHNIQUE: High resolution transaxial imaging was performed without contrast material. Sagittal and coronal images were reconstructed. Individualized dose optimization techniques were used for this CT. COMPARISON: None FINDINGS: Normal craniovertebral junction. There are degenerative changes of the anterior atlantoaxial articulation. Normal odontoid process. Normal cervical lordosis. Multilevel facet joint osteoarthritis and atrophy. C2-3: Facet joint osteoarthritis and hypertrophy worse on the left side. Mild degree of bilateral neural foraminal stenosis. Minimal anterolisthesis of C2 on C3. C3-4: Minimal anterior listhesis of C3 on C4. Marked degree of facet joint osteoarthritis and hypertrophy on the right side. Moderate to severe narrowing of the right intervertebral foramen. C4-5: Facet joint osteoarthritis and hypertrophy worse on the right side. Marked degree of right neural foraminal stenosis. C5-6: Facet joint osteoarthritis and hypertrophy. Moderate degree of right neural foraminal stenosis. C6-7: Normal endplates. Normal disc height and morphology. Normal central canal and intervertebral neuroforamina. C7-T1: Normal endplates. Normal disc height and morphology. Normal central canal and intervertebral neuroforamina. There is enlargement of both lobes of the thyroid gland. Atherosclerotic calcification of the carotid bulbs bilaterally. CT/Spine Cervical without Contras IMPRESSION: Multilevel degenerative changes, as described above. Electronically Signed: David Gaines MD at 13:02 EST , Service support ,
--- NOTE | 2021-03-29 12:20 | EDS_ITS ---
HPI HPI - Fall History of Present Illness Chief Complaint: Fall Informant: patient, spouse/S.O. and EMS Narrative Narrative: Patient has problems with frequent falls. He does have dementia. He is waiting for a placement in a nursing facility/memory unit. He was evidently fell from the third step in the basement. He hit his head on the ground. No reported loss of consciousness. Patient denies any symptoms. Although he has dementia he told me the exact same story that his and EMS did. No blood thinners. He is acting normally per and another family member. He has no symptoms so nothing makes symptoms better or worse. He did have bleeding but that was stopped by gauze applied to his head. [facility] Medical History Arthritis Cataract Cataract Diabetes High blood pressure High cholesterol Syncope and collapse Home Medications amlodipine 10 mg tablet 10 mg PO DAILY #90 tab 03/12/21 [Rx Last Taken Unknown] metoprolol tartrate 50 mg tablet 50 mg PO BID #180 tab 03/12/21 [Rx Last Taken Unknown] Allergy/AdvReac Type Severity Reaction Status Date / Time carbenicillin indanyl sodium AdvReac Other Verified 03/29/21 12:16 [From Geocillin] clonidine AdvReac Bitter Verified 03/29/21 12:16 tasting lisinopril AdvReac Other Verified 03/29/21 12:16 Family History Father Hypertension Arthritis Surgical History History of carotid artery dissection History of cataract surgery History of hernia repair Social History Smoking Status: Former smoker how long ago did patient quit smokin years ago alcohol intake: never substance use type: does not use what type of physical activity do you participate in: walking frequency: daily ROS ROS ED Constitutional Constitutional ED: Denies fever(s) Eyes Eyes: Denies blurry vision ENT ENT ED: Denies rhinorrhea or sore throat Cardiovascular Cardiovascular: Denies chest pain Respiratory/Chest Respiratory/Chest: Denies cough or dyspnea Gastrointestinal Gastrointestinal: Denies nausea Musculoskeletal Musculoskeletal: Denies arthralgias, back pain, myalgias or neck pain Integumentary Reports other Details: Laceration left scalp Neurologic Neurologic: Denies headache(s) Endocrine Endocrinology: Denies polydipsia or polyuria Hematologic/Lymphatic Hematologic/Lymphatic: Denies easy bleeding or easy bruising Allergic/Immunologic Allergic/Immunologic ED: Denies urticaria EXAM Physical Exam Const Vital Signs: 03/29/21 12:11 03/29/21 12:18 Temperature 99.7 F H Temperature Source Oral Pulse Rate 96 Respiratory Rate 20 H Respiratory Effort Normal Non-Labored Blood Pressure 155/86 H Blood Pressure Mean 109 Pulse Ox 94 Oxygen Delivery Method Room Air Room Air Positive well nourished and well developed General Appearance ED: well developed and NAD HEENT HEENT Narrative: Gauze wrappings were taken down. We are doing some final cleaning. He has what appears to be approximately 4 cm laceration of the left side of his scalp. Bleeding is currently controlled. There was a moderate size clot in the area though. trauma Eyes PERRL and EOMs intact bilaterally Eyes Narrative: Pupils are small about 2 mm but are reactive. Range of motion is normal. Neck supple Neck Narrative: C-collar is on. I did not remove this. We did not put the neck through range of motion. He has no tenderness and no complaints of pain though. Chest Wall inspection of chest normal and palpation of chest normal Chest Narrative: No pain with AP or lateral compression. Resp normal respiratory effort and clear to auscultation bilaterally Cardio regular rate and regular rhythm GI non-tender Palpation: soft Back/Spine Cervical Spine: Negative for cervical spine tenderness Thoracic Spine / Upper Back: Negative for thoracic spinal tenderness Lumbar Spine / Lower Back: Negative for lumbar spinal tenderness or paraspinal m uscle tenderness Extremity normal to inspection Extremity Narrative: No tenderness of upper or lower extremities. No pain with range of motion. No pain with compression across the hips. Neuro Sensorium / Orientation: alert Psych mental status grossly normal Skin Skin Narrative: See above. Trauma: laceration MDM MDM MDM Narrative Medical decision making narrative: CT of the patient's head and neck showed no acute process but does show multiple chronic processes. Patient is really at his baseline per family. He has chronic mild instability with not infrequent falls. He has short-term memory loss. This is not new or different. He is pending placement in retirement facility but there are just no places available yet. Procedure: The cleansing and staple laceration: The area around the wound was thoroughly cleansed. I used Shur-Clens and water. Sterilely prepped. It was anesthetized with 8 cc of 1% lidocaine with epinephrine with good anesthesia. I did further scrubbing cleansing and irrigation. It was closed with 6 placido. He tolerated procedure well. There was no bleeding that occurred at this time. Radiography Diagnostic Testing: Clinical Impression(s) from Imaging Studies Brain CT 03/29/21 12:17 IMPRESSION: Chronic involutional changes of the brain. Electronically Signed: David Gaines MD at 12:59 EST , Service support , Cervical Spine CT 03/29/21 12:17 IMPRESSION: Multilevel degenerative changes, as described above. Electronically Signed: David Gaines MD at 13:02 EST , Service support , Discharge Plan Triage Chief Complaint: Fall ED Provider: Jone Sutton Dx/Rx/DC Orders Clinical Impression: Accidental fall on or from other stairs or steps, Laceration of scalp, Closed head injury Instructions: ED Head Injury (Adult), ED Laceration Scalp Stitches or [place] Prescriptions: No Action metoprolol tartrate 50 mg tablet 50 mg PO BID Qty: 180 RF: 1 amlodipine 10 mg tablet 10 mg PO DAILY Qty: 90 RF: 1 Primary Care Provider: Usman Smalls Referrals: Usman Smalls, [Primary Care Provider] - 7 Days for suture removal Disposition Disposition: Home, Self Care
[2021-03-29] MEDS: Lidocaine 1% /Epi 1:100 (20ml) 20 ML Vial INFILT (12:41)
[2021-03-29 14:25] VITALS: BP 154/86; PULSE 91; RESP 15; O2SAT 95
== END 2021-03-29 14:26 | disposition home or self-care (01) ==
PROVIDERS: Emergency Provider Emergency Medicine; PCP Family Medicine; Visit Provider Emergency Medicine
DX: S01.01XA Laceration without foreign body of scalp, initial encounter (principal); F03.90 Unspecified dementia, unspecified severity, without behavioral disturbance, psychotic disturbance, mood disturbance, and anxiety; S09.8XXA Other specified injuries of head, initial encounter; I10 Essential (primary) hypertension; Z87.891 Personal history of nicotine dependence; W19.XXXA Unspecified fall, initial encounter
CPT/HCPCS: 12002; 70450; 72125; 99285

== ENCOUNTER 2021-03-30 11:50 | Emergency (ER) | payer MEDICARE, SELFPAY ==
[2021-03-30 11:54] VITALS: BP 166/94; PULSE 98; RESP 18; TEMP 37.3; O2SAT 95; BMI 21.1
--- NOTE | 2021-03-30 12:13 | ED.VIS.FALL ---
HPI HPI - Fall History of Present Illness Chief Complaint: Fall Informant: patient, spouse/S.O. and family Occured/Mechanism Occurred: Weeks Narrative Narrative: 80-year-old male history of dementia, stroke, [place], diabetes and high cholesterol. Has a history of frequent falls. Has been seen in the emergency department twice in the last 10 to 14 days. Due to falls. He was seen here yesterday and had placido placed on his left posterior scalp due to a scalp laceration from a fall. He had a brain CT and a CT of his C-spine which showed chronic changes but nothing acute. Family has been working to get him in a custodial and states he just cannot manage him at home. He lives with his elderly who also suffers from less severe dementia. No recent illness or hospitalization. Patient himself is unable give me any history. Prior similar symptoms: Yes Recent Illness/Hospitalization: No PFSH PFSH Medical History Arthritis Cataract Cataract Diabetes Frequent falls High blood pressure High cholesterol Syncope and collapse Home Medications amlodipine 10 mg tablet 10 mg PO DAILY #90 tab 03/12/21 [Rx Last Taken Unknown] metoprolol tartrate 50 mg tablet 50 mg PO BID #180 tab 03/12/21 [Rx Last Taken Unknown] Allergy/AdvReac Type Severity Reaction Status Date / Time carbenicillin indanyl sodium AdvReac Other Verified 03/30/21 11:53 [From Geocillin] clonidine AdvReac Bitter Verified 03/30/21 11:53 tasting lisinopril AdvReac Other Verified 03/30/21 11:53 Family History Father Hypertension Arthritis Surgical History History of carotid artery dissection History of cataract surgery History of hernia repair Social History Smoking Status: Former smoker how long ago did patient quit smokin years ago alcohol intake: never substance use type: does not use what type of physical activity do you participate in: walking frequency: daily ROS ROS ED ROS Narrative No recent illness. Frequent falls. Limited review of systems due to the patient's mental status. Review of systems per family. Reportedly has not been recently ill. Review of Systems ROS Unobtainable: due to mental status Constitutional Constitutional ED: Denies fever(s) Eyes Eyes: Denies change in vision ENT ENT ED: Denies ear pain or sore throat Cardiovascular Cardiovascular: Denies chest pain or palpitations Respiratory/Chest Respiratory/Chest: Denies cough, dyspnea or sputum Gastrointestinal Gastrointestinal: Denies abdominal pain, diarrhea, nausea or vomiting Genitourinary Genitourinary ED: Denies dysuria or hematuria Musculoskeletal Musculoskeletal: Denies arthralgias or myalgias Integumentary Denies rash Neurologic Neurologic: Denies headache(s) Psychiatric Psychiatric: Denies depression Hematologic/Lymphatic Hematologic/Lymphatic: Denies easy bruising Allergic/Immunologic Allergic/Immunologic ED: Denies urticaria EXAM Physical Exam Narrative Exam Narrative: 80-year-old male no acute distress. Vital signs stable afebrile. Pulse ox 95% on room air no hypoxia. H EENT exam pupils round reactive light. Moist mucous membranes. Is got healing abrasions and superficial lacerations on his right forehead and eyebrow area. He has a stapled laceration nose left posterior scalp Const Vital Signs: 03/30/21 11:54 03/30/21 12:00 Temperature 99.1 F Temperature Source Temporal Pulse Rate 98 Respiratory Rate 18 Respiratory Effort Normal Non-Labored Respiratory Depth Normal Respiratory Pattern Normal Blood Pressure 166/94 H Blood Pressure Mean 118 Pulse Ox 95 Oxygen Delivery Method Room Air Positive well nourished and well developed; Negative for obese, cachectic, contractures or unkempt General Appearance ED: well developed and NAD; Negative for unkempt, cachectic or contractures Nutritional Appearance: Negative for cachectic or obese HEENT Denies normocephalic HEENT Narrative: Right forehead healing abrasions and lacerations are minor. Left posterior scalp stapled laceration. trauma; Negative for atraumatic Eyes PERRL and EOMs intact bilaterally Neck full ROM, no lymphadenopathy and supple General: Negative for tenderness Chest Wall inspection of chest normal and palpation of chest normal Resp normal respiratory effort, no retractions and clear to auscultation bilaterally Auscultation: Negative for rales, rhonchi or wheezes Cardio regular rate, regular rhythm, S1 normal heart sound, S2 normal heart sound and no murmurs GI non-tender, non-distended and no masses Auscultation: normoactive bowel sounds Palpation: soft and guarding Back/Spine no CVA tenderness General Back: Negative for CVA tenderness Cervical Spine: Negative for cervical spine tenderness Thoracic Spine / Upper Back: Negative for thoracic spinal tenderness Lumbar Spine / Lower Back: Negative for lumbar spinal tenderness Extremity normal to inspection, no calf tenderness and no pedal edema Neuro No oriented x3 and moves all extremities Sensorium / Orientation: alert, orientation impaired, confused and lethargic; Negative for oriented to person, oriented to place or oriented to time Psych mental status grossly normal Appearance: Negative for unkempt Attitude: No agitated Mood & Affect: Negative for depressed, anxious or tearful Skin Lesions: no lesions Rashes: no rashes and No rashes noted MDM MDM MDM Narrative Medical decision making narrative: 80-year-old male from home has advanced dementia. also has dementia but not nearly as severe. He has had frequent falls and been seen in the emergency department twice in the last 2 weeks. Basically family is working on custodial placement. Our social media marketer will be involved. I will do screening labs and a Covid test. The goal is to get into a custodial today if possible if unable he will be admitted to the hospital. Lab Data Attestation: I reviewed the patient's lab results. Lab results narrative: CBC normal white count 9. Hemoglobin 15.8. Platelets 226. Electrolytes show a gap of 8 a BUN of 38 creatinine 1.98. Glucose 128. Dehydration and acute kidney injury. Also Covid rapid antigen positive. Labs: Laboratory Results - last 24 hr 03/30/21 03/30/21 12:20 12:20 WBC 9.4 RBC 4.85 Hgb 15.8 Hct 47.3 MCV 97.5 H MCH 32.6 H MCHC 33.4 RDW Std Deviation 43.8 RDW Coeff of Fernanda 12.0 Plt Count 226 MPV 9.7 Immature Gran % (Auto) 0.300 Neut % (Auto) 75.8 H Lymph % (Auto) 9.3 L Evans % (Auto) 14.4 H Eos % (Auto) 0.0 Baso % (Auto) 0.2 Absolute Neuts (auto) 7.1 Absolute Lymphs (auto) 0.87 Nucleated RBC % 0 Sodium 140 Potassium 4.3 Chloride 107 Carbon Dioxide 25.0 Anion Gap 8 BUN 38 H Creatinine 1.98 H Estim Creat Clear Calc 31.06 Est GFR (MDRD) Af Amer 42 L Est GFR (MDRD) Non-Af 35 L BUN/Creatinine Ratio 19.2 Glucose 128 H Calcium 9.6 Discharge Plan Triage Chief Complaint: Fall ED Provider: Rommel Zamora Dx/Rx/DC Orders Prescriptions: No Action metoprolol tartrate 50 mg tablet 50 mg PO BID Qty: 180 RF: 1 amlodipine 10 mg tablet 10 mg PO DAILY Qty: 90 RF: 1 Primary Care Provider: Usman Smalls Referrals: Usman Smalls, [Primary Care Provider] -
[2021-03-30 12:26] LABS: Absolute Lymphocyte Count 0.87 X10^3/uL (0.83-4.51); Absolute Neutrophil Count 7.1 X10^3/uL (2.0-7.7); Basophil# 0.02 X10^3/uL; Basophil% 0.2 % (0-1); Hematocrit 47.3 % (40-54); Hemoglobin 15.8 g/dL (13.0-16.5); Lymphocyte # 0.87 X10^3/ul (0.83-4.51); Lymphocyte % 9.3 % (19-41); Mean Corp Hgb Conc 33.4 g/dL (32-36); Mean Corpuscular Hgb 32.6 pg (27.0-32.0); Mean Corpuscular Volume 97.5 fL (80-94); Mean Platelet Vol. 9.7 fl (6.2-12.0); Monocyte# 1.35 X10^3/uL; Monocyte% 14.4 % (0-10); NRBC Flagged by Analyzer 0 % (0-5); Neutrophil # 7.08 X10^3/uL (2.7-7.7); Neutrophil % 75.8 % (47-70); Platelet Count 226 K/mm3 (150-450); RBC Distribution Width SD 43.8 fl (35.1-43.9); Red Blood Count 4.85 M/mm3 (4.6-6.2); White Blood Count 9.4 K/mm3 (4.4-11.0)
[2021-03-30 12:40] LABS: Anion Gap 8 (5-15); BUN 38 mg/dL (7-18); BUN/Creat Ratio 19.2 RATIO (10-20); Calcium,Total 9.6 mg/dL (8.5-10.1); Chloride 107 mmol/L (98-107); Creatinine, Serum 1.98 mg/dL (0.70-1.30); EST Glomerular Filtration Rate 35 mL/min (>60); Est Glom Filt Rate - Afr Amer 42 mL/min (>60); Estimated Creatinine Clearance 31.06 ml/min; Glucose 128 mg/dL (74-106); Potassium 4.3 mmol/L (3.5-5.1); Sodium Level 140 mmol/L (136-145)
[2021-03-30 13:45] VITALS: BP 183/89; PULSE 99; RESP 18; O2SAT 96
[2021-03-30] MEDS: 0.9% Normal Saline 1,000 ML 999 ML IV (13:47)
--- NOTE | 2021-03-30 14:20 | RAD_ITS ---
STUDY: X-RAY CHEST REASON FOR EXAM: Male, 80 years old. Covid TECHNIQUE: Single PA view of the chest. COMPARISON: May 04, 2018 chest x-ray FINDINGS: There is increased density in the left lung base. There is blunting of the left costophrenic angle. There is borderline cardiomegaly. Normal mediastinum and yanna. Normal visualized pulmonary arteries. Normal visualized aortic arch and descending thoracic aorta. Normal visualized thoracic spine. Normal visualized ribs, clavicles, and shoulders. There is no demonstrated abnormality of the visualized soft tissue structures of the upper abdomen. RAD/Chest 1 View (Portable) IMPRESSION: Findings are suspicious for small left effusion and/or consolidation. Electronically Signed: Aye Gay MD at 14:53 EST Tel , Service support ,
[2021-03-30 15:20] VITALS: BP 184/88; PULSE 99; RESP 18; O2SAT 95
--- NOTE | 2021-03-30 15:32 | CM.ED ---
Addendum entered by Martha Valdez 03/30/21 21:31: [facility] SOCORRO is [facility] P[facility]. Original Note: ZABRINA Note Referral Source: locomotive crane engineer Natacha Referral Reason: Discharge planning SW was advised by admission discharge rn that patient's family was exploring [facility] for patient. ZABRINA called [facility] and spoke to laser operator Rosario. She reports that they have to make sure that there is paperwork completed for patient prior to admission. She confirmed that they DO not do skilled level of care as the provide independent living and assisted living. SOCORRO voiced concern that patient was aggressive. ZABRINA noted that ED chart said that patient is here for confusion and fall, which are consistent behaviors and symptoms with his referral to their memory care unit. SOCORRO wants RN to call and update her regarding patient's condition. ZABRINA updated Natacha HUSAIN regarding what [facility] had reported. Martha MINOR
--- NOTE | 2021-03-30 17:08 | ED.RN ---
CALLED [facility] INFORMING THEM THAT THE PT HAS BEEN MEDICALLY CLEARED. JONNIE (NURSE RESCUE BOAT OPERATOR) STATED HER D.O.N. HAD TOLD HER THEY COULD TAKE THE PT IF HE HAD A HOSPICE CONSULT. EXPLAINED OUR SW AND NURSE HAD TALKED TO 2 DIFFERENT INDIVIDUALS FROM THAT FACILITY AND WE WERE TOLD THEY DID HAVE ROOM FOR HIM AND HOSPICE WAS NEVER MENTIONED. JONNIE EXPLAINED THAT A HOSPICE CONSULT WOULD GET THEM EXTRA HELP. AGAIN EXPLAINED WE WERE NOT TOLD ANYTHING ABOUT HOSPICE. THE FAMILY HAD CALLED THEIR FACILITY PRIOR TO THE PT COMING TO THE ER AND THEY STATED NOTHING ABOUT HOSPICE. JONNIE STATED HOSPICE WOULD GIVE THEN ADDITIONAL HELP AT THE FACILITY. JONNIE IS CALLING OTHER PEOPLE AT THE FACILITY TO FIND OUT WHAT SHE CAN DO AND WILL CALL US BACK. DR GIMENEZ IS AWARE
--- NOTE | 2021-03-30 18:13 | CM.ED ---
Addendum entered by Martha Valdez 03/30/21 21:21: ZABRINA received call from Santa. Santa said that patient was good to go. ZABRINA updated patient's RN and Charge. ZABRINA requested RN report to [facility]. RN agreed. Transport is scheduled for patient. ZABRINA updated family and they said that [facility] had called them and updated them. Patient's daughter asked about hospice and ZABRINA explained that hospice will contact them in 1-2 days but a referral had been made. RODRIGUE Zamora had ordered hospice referral and it was entered by print project managerRODRIGUE MINOR Original Note: ZABRINA Note SW and bottling equipment sales representative met with patient's and daughter. Updated them on waiting for [facility]. ZABRINA spoke to Santa at [facility]. Santa asked if hospice referral could be made. Zabrina spoke with patient's daughter. They are in agreement with referral to Hospice. They choose [facility]. ZABRINA faxed referral to [facility]. ZABRINA spoke to Laly at [facility] and she said that they will follow up in 1-2 days and they are aware of the plan for patient to go to [facility]. ZABRINA faxed documentation for H and P completed by Dr. Zamora on03/30/21 to [facility]. ZABRINA faxed medical documentation to [facility]. ZABRINA called Santa at [phone] and updated her that hospice referral was made and that ZABRINA faxed documentation to [facility]. ZABRINA updated print project manager stacey and RODRIGUE Ramirez. ZABRINA updated patient's family. Martha MINOR
[2021-03-30 20:04] VITALS: BP 145/89
[2021-03-30 20:25] VITALS: BP 132/77; PULSE 90; RESP 17; TEMP 36.8; O2SAT 95
== END 2021-03-30 21:10 | disposition skilled nursing facility (03) ==
LOC: ED 12:35
PROVIDERS: Emergency Provider Emergency Medicine; PCP Family Medicine; Visit Provider Emergency Medicine
DX: U07.1 COVID-19 (principal); N17.9 Acute kidney failure, unspecified; F03.90 Unspecified dementia, unspecified severity, without behavioral disturbance, psychotic disturbance, mood disturbance, and anxiety; E11.9 Type 2 diabetes mellitus without complications; E78.00 Pure hypercholesterolemia, unspecified; E86.0 Dehydration; R29.6 Repeated falls; I25.2 Old myocardial infarction; M19.90 Unspecified osteoarthritis, unspecified site; Z79.899 Other long term (current) drug therapy; Z86.73 Personal history of transient ischemic attack (TIA), and cerebral infarction without residual deficits; Z87.891 Personal history of nicotine dependence
CPT/HCPCS: 71045; 80048; 85025; 87426; 87635; 96360; 99285; J7030; U0003; U0005